=== PATIENT | female | born 1935 | race Caucasian/White ===

== ENCOUNTER → 2016-11-23 | Outpatient (CLI) | payer MEDICARE | END | disposition home or self-care (01) | LOC: LABWHC1 10:44 | PROVIDERS: ATTEND Orthopaedic Surgery Hand Surgery | DX: Z01.812 Encounter for preprocedural laboratory examination (principal) | CPT/HCPCS: 36415; 93005 ==

== ENCOUNTER → 2017-01-24 | Outpatient (CLI) | payer MEDICARE ==
--- NOTE | 2017-01-24 15:22 | XR ---
EXAM TYPE: LUMBAR SPINE X RAY SERIES COMPARISON: NONE HISTORY: Back pain TECHNIQUE: 4 views are submitted. FINDINGS: Alignment is anatomic. The pedicles are intact. The transverse processes are intact. There is post surgical change involving the abdomen with severe multilevel degenerative disc disease and facet arth ropathy. 2 mm retrolisthesis of L2 relative to L3. Foraminal encroachment suspected at multiple level s. IMPRESSION: 1. Severe multilevel degenerative disc disease.
== END | disposition home or self-care (01) ==
LOC: RADXRMAIN 14:52
PROVIDERS: ATTEND Family Medicine
DX: M51.36 Other intervertebral disc degeneration, lumbar region (principal)
CPT/HCPCS: 72100

== ENCOUNTER → 2017-01-24 | Outpatient (CLI) | payer MEDICARE ==
[2017-01-24 14:16] VITALS: BP 110/67; PULSE 78; RESP 20; TEMP 97.7; BMI 43.0
--- NOTE | 2017-01-24 14:38 | P.BASOAP ---
Subjective Principal diagnosis: Morbid obesity Patient is known to our service. The patient underwent lap scopic banding numerous years ago. She believes she has 5 mL in her band at this time. She is interested a band removal because of complaints of dysphagia. She has not had any recent weight loss. She is not interested in trying to loosen the band. She is also currently not interested in conversion to a different surgical procedure. Objective - Vital Signs Vital signs: Vital Signs Temp 97.7 F 01/24/17 14:09 Pulse 78 01/24/17 14:09 Resp 20 01/24/17 14:09 BP 110/67 01/24/17 14:09 Pulse Ox Intake & Output 01/23/17 01/24/17 01/24/17 18:59 06:59 18:59 Weight 110.042 kg - Exam Abdomen: Soft, nondistended nontender Assessment/Plan (1) Morbid obesity Narrative/Plan: We'll remove the fluid from the patient's band. Will tentatively schedule for band removal. The patient's lap band port was palpated. The site was aseptically prepped. 1% lidocaine was infiltrated into the subcutaneous tissues through a diabetic syringe. The Escoto needle was advanced into the port. Aspiration took place. A total of 3 ml of fluid was removed. Pressure was held and a sterile dressing was applied. Plan: Date: 01/24/17 Initial Weight: 110.042 kg Initial BMI: 43.0 Current Weight: 110.042 kg Current BMI: 43.0 Type of Surgery: Total Volume in Band: Previous Volume: Volume Removed: Volume Added: Band Size:
== END | disposition home or self-care (01) ==
LOC: BARWHC3 13:34
PROVIDERS: ATTEND Surgery
DX: E66.01 Morbid (severe) obesity due to excess calories (principal)
CPT/HCPCS: 72100; 99201

== ENCOUNTER → 2017-03-27 | Outpatient (CLI) | payer MEDICARE ==
[2017-03-27 09:22] LABS: ALT 27 U/L (9-52); AST 32 U/L (14-36); Alkaline Phosphatase 107 U/L (38-126); Anion Gap 10 mmol/L; Blood Urea Nitrogen 29 mg/dL (7-17); Calcium 9.5 mg/dL (8.4-10.2); Carbon Dioxide 24 mmol/L (22-30); Chloride 106 mmol/L (98-107); Glucose 171 mg/dL (74-99); Non-African American GFR(MDRD) >60 (>60 ml/min/1.73 sqM); Potassium 5.1 mmol/L (3.5-5.1); Sodium 140 mmol/L (137-145); Total Bilirubin 0.8 mg/dL (0.2-1.3); Total Protein 7.1 g/dL (6.3-8.2)
[2017-03-27 09:45] LABS: Basophils # (A) 0.1 k/uL (0-0.2); Basophils % (A) 1 %; CHCM 31.2; Eosinophils # (A) 0.2 k/uL (0-0.7); Eosinophils % (A) 3 %; HCT 44.2 % (34.0-46.0); HDW 2.48; HGB 13.8 gm/dL (11.4-16.0); Hypochromasia Slight; Luc # (Auto) 0.19; Luc % (Auto) 3; Lymphocytes # (A) 2.1 k/uL (1.0-4.8); Lymphocytes % (A) 30 %; MCHC 31.1 g/dL (31.0-37.0); MCV 96.5 fL (80.0-100.0); Mean Platelet Volume 7.7; Monocytes # (A) 0.4 k/uL (0-1.0); Monocytes % (A) 6 %; Neutrophils % (A) 57 %; RBC 4.58 m/uL (3.80-5.40); RDW 15.4 % (11.5-15.5); WBC 7.1 k/uL (3.8-10.6)
== END | disposition home or self-care (01) ==
LOC: LABPAT 07:53
PROVIDERS: ATTEND Surgery
DX: Z01.810 Encounter for preprocedural cardiovascular examination (principal); R13.10 Dysphagia, unspecified; Z01.812 Encounter for preprocedural laboratory examination
CPT/HCPCS: 80053; 85025

== ENCOUNTER 2017-03-31 05:54 | Inpatient (IN) | payer MEDICARE ==
[2017-03-24 14:37] VITALS: BMI 40.3
[~2017-03-31 05:54] MED LIST: CLINDAMYCIN 900 MG in DEXTROSE 5% IN WATER 50 ML IVPB ONE; HEPARIN SODIUM,PORCINE 5,000 UNIT/ML 1 ML VIAL SQ ONE
[2017-03-31] MEDS ORDERED: DEXAMETHASONE SOD PHOSPHATE 10 MG/ML 1 ML VIAL IV ONE (06:01)
[2017-03-31] MEDS ORDERED: LACTATED RINGERS 1,000 ML IV SCH (06:01)
[2017-03-31] MEDS ORDERED: SCOPOLAMINE 1.5MG/72HR PATCH TRANSDERM ONE (06:01)
[2017-03-31] MEDS ORDERED: ONDANSETRON 4 MG/2 ML VIAL IVP ONE (06:01)
[2017-03-31] MEDS ORDERED: MIDAZOLAM 2 MG/2 ML VIAL IV PRN (06:01)
[2017-03-31] MEDS ORDERED: LIDOCAINE 1% 20 ML VIAL (10MG/ML) FOR IV START INTRADERMA ONE (06:30)
[2017-03-31 06:44] LABS: Glucose,Whole Blood 187 mg/dL (75-99)
--- NOTE | 2017-03-31 07:53 | P.GSHP ---
History of Present Illness H&P Date: 03/31/17 Chief Complaint: Frequent vomiting, band intolerance Patient today for lap band removal. She has had complaints of frequent reflux and vomiting. Her band was emptied and despite that she is still having episodes of dysphagia. No significant pain. Denies rectal bleeding or melena. Past Medical History Past Medical History: Asthma, Diabetes Mellitus, Deep Vein Thrombosis (DVT), GERD/Reflux, Hyperlipidemia Additional Past Medical History / Comment(s): left eye stroke, mitral valve prolapse, viral induced asthma, type 2 diabetes but gets low blood sugar History of Any Multi-Drug Resistant Organisms: None Reported Past Surgical History: Cholecystectomy, Hysterectomy, Joint Replacement, Tonsillectomy Additional Past Surgical History / Comment(s): bilat knees, lap band Past Anesthesia/Blood Transfusion Reactions: No Reported Reaction Past Psychological History: Anxiety, Depression Smoking Status: Never smoker Past Alcohol Use History: Rare Past Drug Use History: None Reported - Past Family History Brother(s) Family Medical History: Cancer Additional Family Medical History / Comment(s): lung Medications and Allergies Home Medications Medication Instructions Recorded Confirmed Type ALPRAZolam [Xanax] 0.25 tab PO HS 01/27/17 03/28/17 History Cholecalciferol (Vitamin D3) 2,000 unit PO DAILY 01/27/17 03/28/17 History [Vitamin D3] Levothyroxine Sodium [Synthroid] 100 mcg PO DAILY 01/27/17 03/28/17 History Multivit-Min/FA/Lycopen/Lutein 1 tab PO DAILY 01/27/17 03/28/17 History [Centrum Silver Tablet] Tolterodine Tartrate [Detrol LA] 4 mg PO DAILY 01/27/17 03/28/17 History Venlafaxine HCl [Effexor XR] 150 mg PO DAILY 01/27/17 03/28/17 History Aspirin 325 mg PO HS 03/28/17 03/28/17 History Naproxen Sodium [Aleve] 220 mg PO HS 03/28/17 03/28/17 History Rosuvastatin [Crestor] 20 mg PO DAILY 03/28/17 03/28/17 History Allergies Allergy/AdvReac Type Severity Reaction Status Date / Time ciprofloxacin [From Cipro] Allergy made eyes Verified 03/24/17 14:17 red from the gtts Penicillins Allergy Unknown Verified 03/24/17 14:17 Surgical - Exam Vital Signs Temp Pulse Resp BP Pulse Ox 97.7 F 85 18 132/70 94 L 03/31/17 06:20 03/31/17 06:20 03/31/17 06:20 03/31/17 06:20 03/31/17 06:20 Physical exam: General: Well-developed, well-nourished HEENT: Normocephalic, sclerae nonicteric Abdomen: Nontender, nondistended Extremities: No edema Neuro: Alert and oriented Results - Labs 03/31/17 06:33 Abnormal Lab Results - Last 24 Hours (Table) 03/31/17 Range/Units 06:28 POC Glucose (mg/dL) 187 H (75-99) mg/dL Diabetes panel 03/31/17 Range/Units 06:33 Potassium 4.3 (3.5-5.1) mmol/L Pituitary panel 03/31/17 Range/Units 06:33 Potassium 4.3 (3.5-5.1) mmol/L Adrenal panel 03/31/17 Range/Units 06:33 Potassium 4.3 (3.5-5.1) mmol/L Assessment and Plan (1) GERD (gastroesophageal reflux disease) Narrative/Plan: Will proceed with laparoscopic band removal at this time. Risks of bleeding, infection, conversion to an open procedure, possible findings of perforation, persistent reflux or vomiting postoperatively were discussed. She understands and wishes to proceed. Status: Acute
[2017-03-31] MEDS ORDERED: PROPOFOL 10 MG/ML 20 ML VIAL IV ONE (08:16)
[2017-03-31] MEDS ORDERED: MIDAZOLAM 2 MG/2 ML VIAL ONE (08:16)
[2017-03-31] MEDS ORDERED: ePHEDrine SULFATE/0.9% NACL/PF 50 MG/5 ML SYRINGE IV ONE (08:16)
[2017-03-31] MEDS ORDERED: PHENYLEPHRINE-0.9% NACL SYG 1 MG/10 ML SYRINGE ONE (08:16)
[2017-03-31] MEDS ORDERED: SUCCINYLCHOLINE CHLORIDE 100 MG/5 ML SYR IV ONE (08:16)
[2017-03-31] MEDS ORDERED: fentaNYL (PF) 50 MCG/ML 2 ML AMP ONE (08:16)
[2017-03-31] MEDS ORDERED: BUPIVACAINE (PF) 0.25% 30 ML VIAL SQ ONE ×2 (08:46)
[2017-03-31] MEDS ORDERED: LACTATED RINGERS 1,000 ML IV ONE (09:18)
[2017-03-31] MEDS ORDERED: NALOXONE 0.4 MG/ML 1 ML VIAL IV PRN (09:32)
[2017-03-31] MEDS ORDERED: traMADol 50 MG TAB PO PRN (09:32)
[2017-03-31] MEDS: HYDROmorphone 1 MG/ML 1 ML SYRINGE IVP PRN ×2 (10:00→10:18)
[2017-03-31 10:05] VITALS: RESP 16; TEMP 97
--- NOTE | 2017-03-31 10:06 | P.OP ---
Date of Procedure: 03/31/17 Preoperative Diagnosis: Postoperative Diagnosis: Procedure(s) Performed: PREOPERATIVE DIAGNOSIS: Band intolerance/abdominal pain/gerd POSTOPERATIVE DIAGNOSIS: Same PROCEDURE: Laparoscopic lap band removal SURGEON: Gisele EBL: Minimal ANESTHESIA: General COMPLICATIONS: None OPERATIVE PROCEDURE: The patient was brought and placed on the operating room table in the supine position. The patient was placed under general anesthesia at that time. The patient was then placed in lithotomy. The abdomen was prepped and draped in the usual sterile fashion. The previous port incision was localized and then incised using a scalpel. The port was excised using electrocautery. Entrance into the peritoneal cavity occurred using a 5 mm optical trocar through the old trocar entrance site. Insufflation took place to 15 mmHg. A right subxiphoid 5 mm trocar was placed. This was then removed and the medium Marcelo hook was used to elevate the left lobe of the liver anteriorly. An additional 5 mm trocar was placed under direct visualization in the left lateral upper quadrant. The original 5 mm trocar was switched to a 15 mm trocar. A additional 5 mm trocar was placed in the right upper quadrant under direct dilatation. There were adhesions to the band in the buccal that were lysed using both the LigaSure and electrocautery. The band was then cut using the laparoscopic martín. The band was then removed easily in 2 portions through the 15 mm trocar site. The stomach itself was inspected and revealed no evidence of erosion or prolapse. The trochars were removed. The fascia at the 15 mm site was closed using a [id number]-sv-mehtw 0 Vicryl stitch. The subcutaneous tissues at the port site was closed using a 3-0 Vicryl suture. The skin at all 4 incision sites were closed using 4-0 Monocryl sutures. Steri- Strips and sterile dressings were then applied. DISPOSITION: Stable to recovery room Implants: Disposition: observation Indications for Procedure: Operative Findings: Description of Procedure:
[2017-03-31 10:31] LABS: Glucose,Whole Blood 209 mg/dL (75-99)
[2017-03-31 11:22] VITALS: PULSE 82
[2017-03-31 11:54] VITALS: BP 110/68
== END 2017-03-31 12:24 | disposition home or self-care (01) | DRG 989 ==
LOC: 2ORWHC 05:54
PROVIDERS: ADMIT Surgery; ATTEND Surgery
PROC: 0DP64CZ Removal of Extraluminal Device from Stomach, Percutaneous Endoscopic Approach (ICD-10-PCS; principal; 2017-03-31 07:45)
DX: K21.9 Gastro-esophageal reflux disease without esophagitis (principal); E11.9 Type 2 diabetes mellitus without complications; I34.1 Nonrheumatic mitral (valve) prolapse; F32.9 Major depressive disorder, single episode, unspecified; R13.10 Dysphagia, unspecified; E78.5 Hyperlipidemia, unspecified; F41.9 Anxiety disorder, unspecified; Z79.82 Long term (current) use of aspirin; Z79.899 Other long term (current) drug therapy; Z86.73 Personal history of transient ischemic attack (TIA), and cerebral infarction without residual deficits; Z88.1 Allergy status to other antibiotic agents; Z88.0 Allergy status to penicillin
CPT/HCPCS: 84132

== ENCOUNTER → 2017-04-25 | Outpatient (CLI) | payer MEDICARE ==
[2017-04-25 14:16] VITALS: BP 129/86; PULSE 74; TEMP 97.2
== END ==
LOC: BARWHC3 13:10
PROVIDERS: ATTEND Surgery
DX: R13.10 Dysphagia, unspecified (principal); Z98.84 Bariatric surgery status
CPT/HCPCS: 99211

== ENCOUNTER → 2017-05-27 | Outpatient (CLI) | payer MEDICARE ==
--- NOTE | 2017-05-28 15:34 | MR ---
EXAMINATION TYPE: MR lumbar spine wo con DATE OF EXAM: 05/27/2017 COMPARISON: NONE HISTORY: 82-year-old female with pain and Sciatica TECHNIQUE: Multiplanar, multisequence images of the lumbar spine were acquired. FINDINGS: Vertebral body heights are preserved. There is moderate to advanced degenerative disc disease and endplate change particularly in the mid t o lower lumbar spine. Intervertebral discs are desiccated and narrowed with disc osteophyte complex f ormation and bulging disks. Fatty Modic type II endplate changes present from L2 through L5 levels. No suspicious bone marrow rep lacement. Ligamentum flavum thickening at the lower lumbar spine with hypertrophic facet arthropathy. 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 Degenerative grade 1 anterolisthesis at L2-L3. Conus medullaris is normal. At T12-L1, no spinal canal or foraminal stenosis. At L1-L2, there is mild disc bulge and prominent dorsal epidural fat with ligamentum flavum thickenin g. There is mild attenuation of the thecal sac without significant spinal canal stenosis. No signific ant neuroforaminal stenosis. At L2-L3, there is hypertrophic facet arthropathy with ligamentum flavum thickening and grade 1 retro listhesis. There is attenuation of the thecal sac without significant spinal canal stenosis. There is mild right and moderate left neuroforaminal stenosis. At L2-L4, there is hypertrophic facet arthropathy and bulging disc. There is mild attenuation of the thecal sac without significant spinal canal stenosis. There is mild right and ccae-cd-zcgoablt left n euroforaminal stenosis. At L4-L5, bulging disc and facet arthropathy. Ligamentum flavum thickening is also present. Changes r esult in mild left and moderate right neuroforaminal stenosis and no significant spinal canal stenosi s. At L5-S1, hypertrophic facet arthropathy with a ligamentum flavum thickening and bulging disc. Change s result in lacv-to-puzuonzu right neuroforaminal stenosis without significant spinal canal stenosis. Partially visualized 1.8 cm T2 hyperintense lesion, likely cyst in the upper pole left kidney. No pre vertebral or paravertebral soft tissue abnormality. IMPRESSION: 1. Moderate to advanced disc/endplate degenerative change mid to lower lumbar spine along with facet arthropathy and ligamentum flavum thickening. 2. Degenerative grade one retrolisthesis at L2-L3. Changes result in mild attenuation of the thecal s ac from L2 through S1 levels but without significant spinal canal stenosis. 3. Bilateral rsez-qv-xvlfyxrn neuroforaminal stenoses as outlined above.
== END | disposition home or self-care (01) ==
LOC: RADMRIMAIN 11:48
PROVIDERS: ATTEND Family Medicine
DX: M47.816 Spondylosis without myelopathy or radiculopathy, lumbar region (principal); M99.73 Connective tissue and disc stenosis of intervertebral foramina of lumbar region; M43.16 Spondylolisthesis, lumbar region; M24.28 Disorder of ligament, vertebrae; M46.96 Unspecified inflammatory spondylopathy, lumbar region
CPT/HCPCS: 72148

== ENCOUNTER → 2017-08-02 | Outpatient (CLI) | payer MEDICARE ==
--- NOTE | 2017-08-02 11:51 | FL ---
EXAMINATION TYPE: FL UGI w esophagus DATE OF EXAM: 08/02/2017 COMPARISON: NONE HISTORY: Abdominal pain for couple of weeks per patient. Epigastric pain per order. History of lap ba nd placed 2011 with removal approximately 6 months ago per patient. History of duodenal ulcer per pat ient. TECHNIQUE: A double contrast UGI study is performed. A total of 40 seconds of fluoroscopic time was utilized during procedure. 27 spot images are saved during procedure. FINDINGS: Recreation Technician image of the abdomen shows cholecystectomy clips. There is multilevel spurring and d isc space narrowing at mid to lower lumbar spine. There is overall nonobstructive bowel gas pattern. Residual clips epigastric region just below diaphragm from prior lap band are noted. The esophagus shows satisfactory motility and emptying into the stomach. No evidence of hiatal herni a or stricture noted. The stomach shows normal distensibility, peristalsis, and mucosal folds. No evidence of any mass or ulcer disease. Several episodes of gastric esophageal reflux were identified during real-time perform ance of study. The duodenal bulb, sweep, and proximal small bowel loops are unremarkable. IMPRESSION: Several episodes of gastroesophageal reflux otherwise unremarkable study.
== END | disposition home or self-care (01) ==
LOC: RADFLWHC 09:52
PROVIDERS: ATTEND Family Medicine
DX: K21.9 Gastro-esophageal reflux disease without esophagitis (principal)
CPT/HCPCS: 74240

== ENCOUNTER → 2017-08-04 | Outpatient (CLI) | payer MEDICARE ==
--- NOTE | 2017-08-06 13:11 | US ---
EXAMINATION TYPE: US venous doppler duplex LE LT DATE OF EXAM: 08/05/2017 6:39 PM COMPARISON: NONE CLINICAL HISTORY: I83.892 lower leg pain/varicosities. Left knee surgery 15 years ago. SIDE PERFORMED: Left TECHNIQUE: The lower extremity deep venous system is examined utilizing real time linear array sonog linden with graded compression, doppler sonography and color-flow sonography. VESSELS IMAGED: External Iliac Vein (EIV) Common Femoral Vein Deep Femoral Vein Greater Saphenous Vein * Femoral Vein Popliteal Vein Small Saphenous Vein * Proximal Calf Veins (* superficial vessels) Left Leg: Negative for DVT Grayscale, color doppler, spectral doppler imaging performed of the deep veins of the left lower extr emity . There is normal flow, compressibility, vascular waveforms. IMPRESSION: No ultrasound evidence for acute DVT in the left lower extremity.
== END | disposition home or self-care (01) ==
LOC: RADUSWWP 12:00
PROVIDERS: ATTEND Physician Assistant
DX: I83.892 Varicose veins of left lower extremity with other complications (principal); Z88.0 Allergy status to penicillin

== ENCOUNTER → 2017-12-25 | Outpatient (CLI) | payer MEDICARE ==
--- NOTE | 2017-12-25 11:33 | US ---
EXAMINATION TYPE: US kidneys/renal and bladder DATE OF EXAM: 12/25/2017 COMPARISON: MRI dated 05/27/2017 CLINICAL HISTORY: N28.1 Cyst of Kidney. EXAM MEASUREMENTS: Right Kidney: 10.6 x 4.8 x 4.5 cm Left Kidney: 9.5 x 4.6 x 5.1 cm Right Kidney: Lobular contour laterally Left Kidney: 2 cyst noted, largest measuring 1.5 x 1.9 x 1.4cm, smaller measuring1.5 x 1.3 x 1.4cm, s imilar appearance suggesting simple cysts Bladder: wnl Bilateral Jets seen: right jet seen, left not seen There is no evidence for hydronephrosis at this point in time. No nephrolithiasis is seen. Cortical medullary differentiation is maintained. The urinary bladder is anechoic. A focal focus at the upper pole of the left kidney shows imperceptible wall, anechoic appearance, probable increased through tra nsmission, no size change as compared to prior lumbar MRI. IMPRESSION: Probable simple cysts left kidney.
== END | disposition home or self-care (01) ==
LOC: RADUSWWP 10:12
PROVIDERS: ATTEND Family Medicine
DX: N28.1 Cyst of kidney, acquired (principal)
CPT/HCPCS: 76770

== ENCOUNTER → 2018-02-05 | Outpatient (CLI) | payer MEDICARE ==
--- NOTE | 2018-02-05 19:12 | CT ---
EXAMINATION TYPE: CT lumbar spine wo con DATE OF EXAM: 02/05/2018 6:49 PM COMPARISON: NONE HISTORY: Low back pain with radiating pain downt the right leg CT DLP: 1103 mGycm Automated exposure control for dose reduction was used. Unenhanced CT of the lumbar spine was performed. Bone and soft tissue window settings are submitted as well as coronal and sagittal reconstructions. The lumbar vertebra have fairly normal alignment. There is a 5 mm mild retrolisthesis of L2 in relati on to L3. There is moderate narrowing of disc spaces from L2 to S1. There is vacuum disc at L5-S1. Th ere is no compression fracture. There is no lumbar paraspinal mass. Sacroiliac joints are intact. I s ee no focal bone destruction. There is no evidence of any significant spinal stenosis. There is small posterior disc bulge at L4-5. There is developmentally adequate spinal canal. There is multilevel hy pertrophic facet arthropathy in the lumbar spine. IMPRESSION: Spondylotic changes. Mild retrolisthesis at L2-3. No spinal stenosis. No fracture seen.
== END | disposition home or self-care (01) ==
LOC: RADCTMAIN 18:30
PROVIDERS: ATTEND Neurological Surgery
DX: M47.816 Spondylosis without myelopathy or radiculopathy, lumbar region (principal); M43.16 Spondylolisthesis, lumbar region
CPT/HCPCS: 72131

== ENCOUNTER → 2018-03-15 | Outpatient (CLI) | payer MEDICARE ==
--- NOTE | 2018-03-15 14:30 | XR ---
EXAMINATION TYPE: XR chest 2V DATE OF EXAM: 03/15/2018 COMPARISON: NONE TECHNIQUE: PA and lateral views submitted. HISTORY: Preop FINDINGS: The lungs are clear and there is no pneumothorax, pleural effusion, or focal pneumonia. Biapical pl eural thickening. Linear changes involving the lung bases are suggestive of scar or atelectasis. Hype rtrophic change of the spine. Surgical clips in the abdomen noted. No overt failure. IMPRESSION: 1. No acute process.
== END | disposition home or self-care (01) ==
LOC: RADXRMAIN 14:07
PROVIDERS: ATTEND Neurological Surgery
DX: M43.16 Spondylolisthesis, lumbar region (principal)
CPT/HCPCS: 71046

== ENCOUNTER 2018-03-28 10:49 | Day surgery (SDC) | payer MEDICARE ==
[2018-03-23 10:18] VITALS: BMI 37.8
[~2018-03-28 10:49] MED LIST changes: +ALPRAZolam 0.25 MG TAB PO PRN; +ALPRAZolam 0.5 MG TAB PO PRN; +ASPIRIN 325 MG TAB PO STA; +ATORVASTATIN 80 MG TAB PO STA; -CLINDAMYCIN 900 MG in DEXTROSE 5% IN WATER 50 ML IVPB ONE; -HEPARIN SODIUM,PORCINE 5,000 UNIT/ML 1 ML VIAL SQ ONE; +NITROGLYCERIN SL TABS 0.4 MG TAB SUBLINGUAL PRN; +SODIUM CHLORIDE 0.9% 1,000 ML in EMPTY BAG 1 BAG IV ONE
[2018-03-28 11:55] VITALS: RESP 16; TEMP 98.2
[2018-03-28 12:12] LABS: Glucose,Whole Blood 128 mg/dL (75-99)
[2018-03-28] MEDS ORDERED: diphenhydrAMINE 50 MG/ML 1 ML VIAL ONE (13:02)
[2018-03-28] MEDS ORDERED: fentaNYL (PF) 50 MCG/ML 2 ML AMP ONE (13:03)
[2018-03-28] MEDS ORDERED: LIDOCAINE 1% INJ 10MG/ML (20 ML MDV) ONE (13:25)
[2018-03-28] MEDS ORDERED: VERAPAMIL 2.5 MG/ML 2 ML AMP ONE (13:25)
[2018-03-28] MEDS ORDERED: diphenhydrAMINE 50 MG/ML 1 ML VIAL IVP ONE (13:26)
[2018-03-28] MEDS ORDERED: fentaNYL (PF) 50 MCG/ML 2 ML AMP IVP ONE (13:26)
[2018-03-28] MEDS ORDERED: LIDOCAINE 1% INJ 10MG/ML (20 ML MDV) SQ ONE (13:30)
[2018-03-28] MEDS: VERAPAMIL SYRINGE (5 MG/10 ML) INTRAARTER ONE ×2 (13:32→13:43)
[2018-03-28] MEDS ORDERED: HEPARIN SODIUM 1,000 UN/ML (10ML VL) IV ONE (13:37)
[2018-03-28] MEDS ORDERED: IOPAMIDOL-370 125ML BTL INJ ONE (13:49)
[2018-03-28] MEDS ORDERED: RX INFO: IV CONTRAST WAS GIVEN 1 EACH MISC MISCELLANE PRN (14:03)
[2018-03-28] MEDS ORDERED: SODIUM CHLORIDE 0.9% 1,000 ML IV SCH (14:15)
--- NOTE | 2018-03-28 14:19 | CC ---
CARDIAC CATHETERIZATION REPORT Mrs. Macdonald is an 83-year-old female with known history of hypertension, hyperlipidemia, diabetes mellitus, history of aortic valve disease who was scheduled to undergo back surgery, who has been complaining of progressive dyspnea on exertion. Underwent a myocardial perfusion imaging that revealed apical lateral wall ischemia. In view of that, recommendation made regarding cardiac catheterization. The procedures, risks and complications were discussed with the patient who is in full understanding and agreement. PROCEDURE: Patient was brought to the cath lab tech in a fasting semi-sedated state after receiving 1st fentanyl and Benadryl and achieving moderate conscious sedated state. Using Xylocaine anesthesia and Seldinger technique, a 6-Martiniquais sheath was introduced in the right radial artery. Selective right and left angiography performed using 5-Martiniquais 4 bend right and left Xin catheter. Multiple views of the coronary artery including hemiaxial views were obtained. Following that 5-Martiniquais tight pigtail catheter was introduced into the left ventricle and a 30 degree SHEPPARD view of the left ventricle was obtained. Following that, catheter and sheath were removed. Hemostasis was obtained with deployment of a TR band. There were no immediate complications. Patient is returned to her room in stable condition. FINDINGS: FLUOROSCOPY: There was calcification involving the aortic valve. SELECTIVE CORONARY ANGIOGRAPHY: LEFT MAIN: This is a short size vessel trifurcating into left circumflex, left anterior descending artery, ramus intermedius. Left main coronary artery has no evidence of high-grade stenosis. LEFT ANTERIOR DESCENDING ARTERY: This is a large-sized vessel reaching toward the apex with a wraparound the apex segment, tortuous in mid segment, giving rise to a large diagonal branch proximally. The left anterior descending artery and its branches have no evidence of obstructive coronary artery disease. LEFT CIRCUMFLEX: This is a nondominant vessel giving rise to a large obtuse marginal branch. The left circumflex as well as branches have no evidence of obstructive coronary artery disease. RIGHT CORONARY ARTERY: This is a large dominant vessel bifurcating PDA and posterolateral segment and its branches. The right coronary artery as well as branches have no evidence of obstructive coronary artery disease. LEFT VENTRICULOGRAM: Left ventriculogram was performed in 30 degree SHEPPARD view and reveals normal size left ventricular size and systolic function. Ejection fraction is about 60%. There was no significant mitral regurgitation. HEMODYNAMICS: There was a 40 mm gradient across the aortic valve. The left ventricular end-diastolic pressure was 10-12 mmHg. CONCLUSION: 1. Calcified aortic valve with moderate aortic stenosis. 2. Normal coronary arteries. 3. Normal left ventricular size and systolic function. RECOMMENDATIONS: In view of findings and anatomy, I recommend continued medical therapy with aggressive coronary risk factor modifications. We will continue to follow the aortic valve closely and depending on that, further recommendations will be made. Duration of procedure is 25 minutes. LUCRETIA / GAILN: [id number] /
[2018-03-28 19:55] VITALS: BP 113/58; PULSE 64
[2018-03-28] MEDS ORDERED: ALPRAZolam 0.25 MG TAB PO SCH (21:00)
[2018-03-28] MEDS ORDERED: ASPIRIN 325 MG TAB PO SCH (21:00)
[2018-03-29] MEDS ORDERED: PANTOPRAZOLE 40 MG TABLET PO SCH (07:30)
[2018-03-29] MEDS ORDERED: CHOLECALCIFEROL 1,000 UNIT TAB PO SCH (09:00)
[2018-03-29] MEDS ORDERED: VENLAFAXINE HCL ER 150 MG CAP PO SCH (09:00)
[2018-03-29] MEDS ORDERED: LEVOTHYROXINE 125 MCG TAB PO SCH (09:00)
[2018-03-29] MEDS ORDERED: VIT A,C & E-LUTEIN-MINERALS 1 EACH TAB PO SCH (09:00)
[2018-03-29] MEDS ORDERED: OXYBUTYNIN XL 5 MG TAB.ER.24 PO SCH (09:00)
== END 2018-03-28 19:14 | disposition home or self-care (01) ==
LOC: CATHCVL 10:49
PROVIDERS: ATTEND Internal Medicine Interventional Cardiology
DX: I35.0 Nonrheumatic aortic (valve) stenosis (principal); R94.39 Abnormal result of other cardiovascular function study; E78.2 Mixed hyperlipidemia; E11.9 Type 2 diabetes mellitus without complications; F17.210 Nicotine dependence, cigarettes, uncomplicated; Z82.49 Family history of ischemic heart disease and other diseases of the circulatory system; Z79.82 Long term (current) use of aspirin; Z79.890 Hormone replacement therapy; Z79.899 Other long term (current) drug therapy; Z88.1 Allergy status to other antibiotic agents; Z88.0 Allergy status to penicillin
CPT/HCPCS: 93458; C1894; C1769; J1200; J2001; J3010; J1644; Q9967

== ENCOUNTER → 2018-08-08 | Outpatient (CLI) | payer MEDICARE ==
--- NOTE | 2018-08-09 14:46 | MM ---
Reason for exam: screening (asymptomatic). Last mammogram was performed 1 year ago. History: Patient is postmenopausal and history of other cancer. Family history of breast cancer in maternal grandmother. Took estrogen for 15 years beginning at age 50. Physical Findings: A clinical breast exam by your physician is recommended on an annual basis and results should be correlated with mammographic findings. MG 3D Screening Mammo W/Cad Bilateral CC and MLO view(s) were taken. Prior study comparison: July 31, 2017, bilateral MG 3d screening mammo w/cad. July 22, 2016, bilateral MG 3d screening mammo w/cad. The breast tissue is heterogeneously dense. This may lower the sensitivity of mammography. There is no discrete abnormality. No significant changes when compared with prior studies. ASSESSMENT: Benign, BI-RAD 2 RECOMMENDATION: Routine screening mammogram of both breasts in 1 year.
== END | disposition home or self-care (01) ==
LOC: RADMAMWWP 11:08
PROVIDERS: ATTEND Family Medicine
DX: Z12.31 Encounter for screening mammogram for malignant neoplasm of breast (principal)
CPT/HCPCS: 77063; 77067

== ENCOUNTER → 2018-10-17 | Outpatient (CLI) | payer MEDICARE ==
--- NOTE | 2018-10-17 12:49 | XR ---
Lumbar spine HISTORY: Pain, degeneration of lumbar disc 3 views of the lumbar spine Correlation prior exam 01/24/2017 Surgical clips again noted in the right upper quadrant. There is been interval posterior fusion at L2 -3. Mild spinal curvature is noted. Bone mineralization is reduced. Lumbar vertebral bodies show pres erved height. Minimal retrolisthesis grade 1 L2-3. Loss of disc height at the intervertebral levels i s noted. Vacuum phenomenon also present at intervertebral levels. Sclerosis present in the posterior elements of the lower lumbar spine compatible with facet arthropathy. Lap band is no longer seen. IMPRESSION: Osteopenia, degenerative disc disease, facet arthropathy, stable spondylolisthesis and in terval postop changes. Mild spinal curvature.
== END ==
LOC: RADXRMAIN 10:06
PROVIDERS: ATTEND Family Medicine
DX: M51.36 Other intervertebral disc degeneration, lumbar region (principal); M43.16 Spondylolisthesis, lumbar region; M46.86 Other specified inflammatory spondylopathies, lumbar region; M85.88 Other specified disorders of bone density and structure, other site; M43.8X6 Other specified deforming dorsopathies, lumbar region; Z98.890 Other specified postprocedural states
CPT/HCPCS: 72100

== ENCOUNTER → 2018-12-19 | Outpatient (CLI) | payer MEDICARE ==
--- NOTE | 2018-12-19 12:20 | XR ---
EXAMINATION TYPE: XR chest 2V DATE OF EXAM: 12/19/2018 COMPARISON: 03-31 TECHNIQUE: PA and lateral views submitted. HISTORY: Cough and congestion FINDINGS: The lungs are clear and there is no pneumothorax, pleural effusion, or focal pneumonia. Biapical pl eural thickening. Atherosclerotic change of the aorta. Surgical changes in the abdomen and vertebral column. Hypertrophic change of the vertebral column. IMPRESSION: 1. No acute process.
== END | disposition home or self-care (01) ==
LOC: RADXRMAIN 11:42
PROVIDERS: ATTEND Family Medicine
DX: J20.9 Acute bronchitis, unspecified (principal)
CPT/HCPCS: 71046

== ENCOUNTER → 2019-01-15 | Outpatient (CLI) | payer MEDICARE ==
--- NOTE | 2019-01-15 11:26 | US ---
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 GLAND SIZE: Right Lobe: 3.0 x 1.5 x 1.0 cm Overall Parenchyma: heterogenous Left Lobe: 2.3 x 1.0 x 1.0 cm Overall Parenchyma: heterogeneous Isthmus Thickness: 0.4 cm NODULES RIGHT: # of nodules measured on right: 0 LEFT: # of nodules measured on left: 0 ISTHMUS: # of nodules measured in the isthmus: 0 Bilateral neck scanned, no evidence of lymphadenopathy. IMPRESSION: Findings could represent thyroiditis, gland is atrophic and heterogeneous.
--- NOTE | 2019-01-15 11:49 | US ---
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 EXAM MEASUREMENTS: Abdominal Aorta: Proximal: 2.1cm Mid: 1.7cm Distal: 1.6cm Bifurcation: Rt: 1.0cm Lt: 0.9cm Pt of large body habitus. Difficult to visualize bifurcation due to overlying bowel and obesity, only seen in transverse with c olor doppler. Grayscale and color Doppler, spectral Doppler imaging performed. IMPRESSION: No evident abdominal aortic aneurysm.
== END | disposition home or self-care (01) ==
LOC: RADUSWWP 07:33
PROVIDERS: ATTEND Family Medicine
DX: I70.0 Atherosclerosis of aorta (principal); E04.2 Nontoxic multinodular goiter
CPT/HCPCS: 76536; 93979

== ENCOUNTER → 2019-06-04 | Outpatient (CLI) | payer MEDICARE ==
[2019-06-04 15:49] LABS: HCT 40.5 % (34.0-46.0); HGB 12.3 gm/dL (11.4-16.0); MCH 27.8 pg (25.0-35.0); MCHC 30.5 g/dL (31.0-37.0); Mean Platelet Volume 6.6; Platelet Count 255 k/uL (150-450); RBC 4.44 m/uL (3.80-5.40); RDW 14.5 % (11.5-15.5)
[2019-06-04 15:58] LABS: Potassium 4.6 mmol/L (3.5-5.1)
== END | disposition home or self-care (01) ==
LOC: LABPAT 14:54
PROVIDERS: ATTEND Internal Medicine Interventional Cardiology
DX: Z01.812 Encounter for preprocedural laboratory examination (principal); I35.0 Nonrheumatic aortic (valve) stenosis
CPT/HCPCS: 36415; 80051; 82565; 84520; 85027

== ENCOUNTER → 2019-08-09 | Outpatient (CLI) | payer MEDICARE ==
--- NOTE | 2019-08-09 10:57 | BD ---
EXAMINATION TYPE: Axial Bone Density DATE OF EXAM: 08/09/2019 COMPARISON: Prior DEXA bone scan 2016 CLINICAL HISTORY: Height: 64 Weight: 284.0 FRAX RISK QUESTIONS: Alcohol (3 or more units per day): no Family History (Parent hip fracture): no Glucocorticoids (More than 3mos): cortisone from bronchitis (Ex: prednisone, prednisolone, methylprednisolone, dexamethasone, and hydrocortisone). History of Fracture in Adulthood: yes Secondary Osteoporosis: 1. Type 1 Diabetes: no 2. Hyperthyroidism: no 3. Menopause before 45: no 4. Malnutrition: no 5. Chronic liver disease: no Rheumatoid Arthritis: no Current Tobacco Use: no RISK FACTORS HISTORY OF: History of Wrist Fracture: left When: 5 years ago Surgery to Spine/Hip(right/left)/Wrist (right/left): lumbar spine When: 1 year ago Family History of Osteoporosis: no Active: sometimes Diet low in dairy products/other sources of calcium: no Postmenopausal woman: age50 MEDICATIONS: Thyroid Medications: levothyroxine How Lon years Additional History: EXAM MEASUREMENTS: Bone mineral densitometry was performed using the Built In System. Bone mineral density about the R hip (g/cm2): 0.912 Bone mineral density about the L hip (g/cm2): 0.985 T Score values are as follows: -----R Neck: -0.9 -----L Neck: -0.4 -----R Total: -0.6 -----L Total: 0.0 Bone mineral density has: decreased -4.1 % since study of: 2016 Bone mineral density about the R Wrist (g/cm2): 0.519 T Score values are as follows: -----Dist. R+U: 0.0 -----Prox. R+U: -2.7 -----Radius total: -2.6 Bone mineral density baseline for the wrist IMPRESSION: Osteoporosis (T Score less than -2.5) at level of wrist. There is increased fracture risk and therapy is usually indicated based on age. Re-Screen 1-2 years. NOTE: T-SCORE=SD OF THE YOUNG ADULT MEAN.
--- NOTE | 2019-08-09 13:02 | MM ---
Reason for exam: screening (asymptomatic). Last mammogram was performed 1 year ago. History: Patient is postmenopausal and history of other cancer. Family history of breast cancer in maternal grandmother. Took estrogen for 15 years beginning at age 50. Physical Findings: A clinical breast exam by your physician is recommended on an annual basis and results should be correlated with mammographic findings. MG 3D Screening Mammo W/Cad Bilateral CC and MLO view(s) were taken. Prior study comparison: August 08, 2018, bilateral MG 3d screening mammo w/cad. July 31, 2017, bilateral MG 3d screening mammo w/cad. There are scattered fibroglandular densities. There are benign appearing round calcifications bilaterally. There is chronic nodularity in the left breast. There is no discrete abnormality. ASSESSMENT: Benign, BI-RAD 2 RECOMMENDATION: Routine screening mammogram of both breasts in 1 year.
== END | disposition home or self-care (01) ==
LOC: RADMAMWWP 09:05
PROVIDERS: ATTEND Family Medicine
DX: Z12.31 Encounter for screening mammogram for malignant neoplasm of breast (principal); M81.0 Age-related osteoporosis without current pathological fracture; Z78.0 Asymptomatic menopausal state
CPT/HCPCS: 77063; 77067; 77080

== ENCOUNTER → 2020-03-30 | Outpatient (CLI) | payer MEDICARE | END | disposition home or self-care (01) | LOC: LABWHC1 09:44 | PROVIDERS: ATTEND Family Medicine | DX: U07.1 COVID-19 (principal) | CPT/HCPCS: U0003; C9803 ==

== ENCOUNTER → 2020-04-07 | Outpatient (CLI) | payer MEDICARE | END | disposition home or self-care (01) | LOC: LABWHC1 09:40 | PROVIDERS: ATTEND Internal Medicine | DX: Z01.812 Encounter for preprocedural laboratory examination (principal); Z20.828 Contact with and (suspected) exposure to other viral communicable diseases | CPT/HCPCS: U0003; C9803 ==

== ENCOUNTER → 2020-07-02 | Outpatient (CLI) | payer MEDICARE | END | disposition home or self-care (01) | LOC: LABWHC1 12:39 | PROVIDERS: ATTEND Nurse Practitioner | DX: Z20.828 Contact with and (suspected) exposure to other viral communicable diseases (principal) | CPT/HCPCS: U0003; C9803 ==

== ENCOUNTER → 2020-09-07 | Outpatient (CLI) | payer MEDICARE ==
--- NOTE | 2020-09-08 07:52 | US ---
EXAMINATION TYPE: US venous doppler duplex LE BI DATE OF EXAM: 09/07/2020 4:06 PM COMPARISON: NONE CLINICAL HISTORY: R60.0 Localized edema. SIDE PERFORMED: Bilateral TECHNIQUE: The lower extremity deep venous system is examined utilizing real time linear array sonog linden with graded compression, doppler sonography and color-flow sonography. VESSELS IMAGED: Common Femoral Vein Deep Femoral Vein Greater Saphenous Vein * Femoral Vein Popliteal Vein Small Saphenous Vein * Proximal Calf Veins (* superficial vessels) Patient of large body habitus Right Leg: Negative for DVT Left Leg: Negative for DVT IMPRESSION: No evidence for DVT.
== END | disposition home or self-care (01) ==
LOC: RADUSWWP 16:04
PROVIDERS: ATTEND Family Medicine
DX: R60.0 Localized edema (principal)
CPT/HCPCS: 93970

== ENCOUNTER → 2020-10-15 | Outpatient (CLI) | payer MEDICARE ==
--- NOTE | 2020-10-15 11:26 | MM ---
Reason for exam: screening (asymptomatic). Last mammogram was performed 1 year and 2 months ago. History: Patient is postmenopausal and history of other cancer. Family history of breast cancer in maternal grandmother. Took hormonal contraceptives for 6 months. Took estrogen for 15 years beginning at age 50. Physical Findings: A clinical breast exam by your physician is recommended on an annual basis and results should be correlated with mammographic findings. MG 3D Screening Mammo W/Cad Bilateral CC and MLO view(s) were taken. Prior study comparison: August 09, 2019, bilateral MG 3d screening mammo w/cad. August 08, 2018, bilateral MG 3d screening mammo w/cad. There are scattered fibroglandular densities. There are benign appearing round calcifications bilaterally. There is chronic nodularity in the left breast. There is no discrete abnormality. ASSESSMENT: Benign, BI-RAD 2 RECOMMENDATION: Routine screening mammogram of both breasts in 1 year.
== END ==
LOC: RADMAMWWP 09:16
PROVIDERS: ATTEND Family Medicine
DX: Z12.31 Encounter for screening mammogram for malignant neoplasm of breast (principal); Z78.0 Asymptomatic menopausal state; Z80.3 Family history of malignant neoplasm of breast
CPT/HCPCS: 77063; 77067

== ENCOUNTER → 2021-03-09 | Outpatient (CLI) | payer MEDICARE ==
--- NOTE | 2021-03-09 11:01 | CT ---
EXAMINATION TYPE: CT brain jose rodriguez con DATE OF EXAM: 03/09/2021 COMPARISON: None HISTORY: Fall, dizziness CT DLP: 1731.2 mGycm, Automated exposure control for dose reduction was used. CONTRAST: None CT of the brain is performed utilizing 3 mm thick sections through the posterior fossa and 3 mm thick sections through the remaining calvarium. Study is performed within 24 hours of arrival to the hospital. No abnormal hyperdensity is present to suggest an acute intracranial hemorrhage. No mass lesion is evident. No acute infarcts are evident. Ventricles and sulci are prominent for the patient age. Extra-axial spaces are prominent adjacent to the frontal lobes. Consider subdural hygroma. Some superficial soft tissue swelling is over the right frontal temporal region. Mild mucosal thickening in posterior left ethmoid air cells. Remaining paranasal sinuses and mastoid air cells are clear. IMPRESSIONS: 1. Atrophy with chronic appearing periventricular white matter ischemic changes. CT cervical spine. COMPARISON: None CT of the cervical spine is performed in the axial plane at 2 mm thick sections. Reconstructed image s in the coronal, and sagittal plane are reviewed on the computer. No acute fractures are evident. Vertebral body alignment is normal. Prevertebral space is normal. Diffuse loss of disc height is present through the cervical spine. This is greatest at C4-5 C5-6 C6-7 . Some posterior endplate spurring is present C5-6 and C3-4. Anterior vertebral body spurring is pres ent C4, C5, and C6.. Vertebral body heights are preserved. No spinal canal stenosis is evident. Uncovertebral joint hypertrophy is contributing to mild foraminal narrowing bilaterally at C5-6 C6-7. Lung apices appear clear. IMPRESSIONS: 1. Degenerative disc changes. 2. Mild foraminal narrowing bilaterally C5-6 C6-7 from uncovertebral joint hypertrophy.
== END | disposition home or self-care (01) ==
LOC: RADCTMAIN 10:09
PROVIDERS: ATTEND Nurse Practitioner
DX: I67.82 Cerebral ischemia (principal); M50.323 Other cervical disc degeneration at C6-C7 level; M99.71 Connective tissue and disc stenosis of intervertebral foramina of cervical region
CPT/HCPCS: 70450; 72125

== ENCOUNTER → 2021-03-10 | Outpatient (CLI) | payer MEDICARE ==
--- NOTE | 2021-03-10 11:09 | XR ---
EXAMINATION TYPE: XR wrist complete RT DATE OF EXAM: 03/10/2021 COMPARISON: NONE HISTORY: Pain TECHNIQUE: Four views submitted. FINDINGS: The osseous structures are intact. There is a negative ulnar variance with arthropathy of the radioul nico and radiocarpal joint. Chondrocalcinosis noted. Mild diffuse osteopenia. IMPRESSION: 1. Arthropathy.
--- NOTE | 2021-03-10 11:11 | XR ---
EXAMINATION TYPE: XR hand complete RT DATE OF EXAM: 03/10/2021 COMPARISON: NONE HISTORY: Pain TECHNIQUE: Three views are submitted. FINDINGS: The osseous structures are intact. Diffuse osteopenia. Narrowing of the DIP joints of the second thro ugh fifth digits as well as the radiocarpal and radioulnar joints. Diffuse osteopenia. IMPRESSION: 1. No definite acute fracture or dislocation if symptoms persist, follow-up study in 7 to 10 days wo uld be suggested. 2. Arthropathy. 3. Diffuse osteopenia
--- NOTE | 2021-03-10 11:14 | XR ---
EXAMINATION TYPE: XR forearm RT DATE OF EXAM: 03/10/2021 COMPARISON: NONE HISTORY: Pain Two views of the forearm demonstrate Arthropathy of the radiocarpal and radioulnar joint. Evidence of chondrocalcinosis. Hypertrophic change involving the elbow joint. There is displacement of the anter ior fat pad. IMPRESSION: 1. There is displacement anterior fat pad. Occult fracture in the differential diagnosis.
== END | disposition home or self-care (01) ==
LOC: RADXRMAIN 09:33
PROVIDERS: ATTEND Nurse Practitioner
DX: M85.841 Other specified disorders of bone density and structure, right hand (principal); M85.831 Other specified disorders of bone density and structure, right forearm; S52.501A Unspecified fracture of the lower end of right radius, initial encounter for closed fracture

== ENCOUNTER 2021-03-14 09:30 | Emergency (ER) | payer MEDICARE ==
[2021-03-14 09:35] VITALS: RESP 20; TEMP 98.2
--- NOTE | 2021-03-14 09:49 | ED ---
Upper Extremity HPI - General Chief Complaint: Extremity Injury, Upper Stated Complaint: Rt Wrist Injury Time Seen by Provider: 03/14/21 09:36 Source: patient Mode of arrival: wheelchair Limitations: no limitations - History of Present Illness Initial Comments: This an 86-year-old female presents emergency Department with chief complaint of continuation of right wrist and elbow pain. Patient states she had a fall today did see PCP in which a CAT scan of her head and x-rays. Patient states that she still has pain in the wrist and cold. She was informed that there may be a possible fracture to right elbow but had a negative x-ray of the wrist she did contact orthopedics who stated they could see her in 3 weeks. He states that she cannot wait for this pain is worsened. - Related Data Home Medications Medication Instructions Recorded Confirmed ALPRAZolam [Xanax] 0.25 tab PO HS 01/27/17 03/23/18 Cholecalciferol (Vitamin D3) 2,000 unit PO DAILY 01/27/17 03/23/18 [Vitamin D3] Levothyroxine Sodium [Synthroid] 125 mcg PO DAILY 01/27/17 03/23/18 Multivit-Min/FA/Lycopen/Lutein 1 tab PO DAILY 01/27/17 03/23/18 [Centrum Silver Tablet] Tolterodine Tartrate [Detrol LA] 4 mg PO DAILY 01/27/17 03/23/18 Venlafaxine HCl [Effexor XR] 150 mg PO DAILY 01/27/17 03/23/18 Aspirin 162 mg PO HS 03/28/17 03/23/18 Omeprazole [PriLOSEC] 20 mg PO AC-BRKFST 03/23/18 03/23/18 Allergies Allergy/AdvReac Type Severity Reaction Status Date / Time ciprofloxacin [From Cipro] Allergy made eyes Verified 03/14/21 09:35 red from the gtts Penicillins Allergy Unknown Verified 03/14/21 09:35 Review of Systems ROS Statement: Those systems with pertinent positive or pertinent negative responses have been documented in the HPI. ROS Other: All systems not noted in ROS Statement are negative. Past Medical History Past Medical History: Asthma, Diabetes Mellitus, Deep Vein Thrombosis (DVT), GERD/Reflux, Hyperlipidemia, Mitral Valve Prolapse (MVP), Thyroid Disorder Additional Past Medical History / Comment(s): left eye stroke, viral induced asthma, type 2 diabetes but gets low blood sugar, severe DDD lower back History of Any Multi-Drug Resistant Organisms: None Reported Past Surgical History: Bariatric Surgery, Cholecystectomy, Hysterectomy, Joint Replacement, Tonsillectomy Additional Past Surgical History / Comment(s): bilat knees, lap band, lap band removal 8-17 Past Anesthesia/Blood Transfusion Reactions: No Reported Reaction Past Psychological History: Anxiety, Depression Smoking Status: Former smoker Past Alcohol Use History: Rare Past Drug Use History: None Reported - Past Family History Brother(s) Family Medical History: Cancer Additional Family Medical History / Comment(s): lung General Exam Limitations: no limitations General appearance: alert, in no apparent distress Head exam: Present: atraumatic, normocephalic, normal inspection, other (Facial bruising noted) Respiratory exam: Present: normal lung sounds bilaterally. Absent: respiratory distress, wheezes, rales, rhonchi, stridor Cardiovascular Exam: Present: regular rate, normal rhythm, normal heart sounds. Absent: systolic murmur, diastolic murmur, rubs, gallop, clicks Extremities exam: Present: other (Right wrist there is tenderness, mild swelling noted, no obvious deformity no hand tenderness neurovascular intact there is tenderness over the right elbow with pain with range of motion) Skin exam: Present: warm, dry, intact, normal color. Absent: rash Course Vital Signs 03/14/21 09:31 Temperature 98.2 F Pulse Rate 90 Respiratory 20 Rate Blood Pressure 104/46 O2 Sat by Pulse 96 Oximetry Procedures - Orthopedic Splinting/Casting Injury #2 Side: right Upper Extremity Injury Location: long arm, elbow, wrist Upper Extremity Immobilizer: sling/shoulder immobilizer, posterior splint, synthetic pre-padded splint Medical Decision Making - Medical Decision Making X-rays were reviewed shows evidence of occult fracture right elbow, x-ray of the wrist shows osteopenia changes no definite fracture. Patient was splinted in a long-arm splint will follow-up with orthopedics on Monday return for any worsening change in symptoms. Disposition Clinical Impression: Right radial head fracture, Right wrist sprain Disposition: HOME SELF-CARE Condition: Stable Instructions (If sedation given, give patient instructions): Arm Fracture in Adults (ED) Additional Instructions: Please return to the Emergency Department if symptoms worsen or any other concerns. Is patient prescribed a controlled substance at d/c from ED?: No Referrals: Vladimir Miller MD [Primary Care Provider] - 1-2 days Guevara Tineo DO [Doctor of Osteopathic Medicine] - 1-2 days Time of Disposition: 10:15
--- NOTE | 2021-03-14 10:06 | XR ---
EXAMINATION TYPE: XR elbow complete RT DATE OF EXAM: 03/14/2021 COMPARISON: NONE HISTORY: Pain FINDINGS: Three views of the elbow demonstrate posterior and anterior fat pad compatible with pathologic joint effusion. Arthropathy of the joint spaces. No erosive changes. Soft tissue calcifications noted.. Th e osseous structures are intact. There is no acute fracture or dislocation. IMPRESSION: 1. Pathologic joint effusion suspected occult fracture. 2. Arthropathy.
--- NOTE | 2021-03-14 10:07 | XR ---
EXAMINATION TYPE: XR wrist complete RT DATE OF EXAM: 03/14/2021 COMPARISON: NONE HISTORY: Pain TECHNIQUE: Four views submitted. FINDINGS: The osseous structures are intact. Diffuse osteopenia and there is no acute fracture or dislocation. Chondrocalcinosis noted. IMPRESSION: 1. No definite acute fracture or dislocation if symptoms persist, follow-up study in 7 to 10 days wo uld be suggested
[2021-03-14 10:40] VITALS: BP 107/88; PULSE 84
== END 2021-03-14 10:40 | disposition home or self-care (01) ==
LOC: EC 09:30
DX: S52.121A Displaced fracture of head of right radius, initial encounter for closed fracture (principal); S63.501A Unspecified sprain of right wrist, initial encounter; E11.9 Type 2 diabetes mellitus without complications; E78.5 Hyperlipidemia, unspecified; J45.909 Unspecified asthma, uncomplicated; K21.9 Gastro-esophageal reflux disease without esophagitis; F32.9 Major depressive disorder, single episode, unspecified; F41.9 Anxiety disorder, unspecified; Z79.890 Hormone replacement therapy; Z79.82 Long term (current) use of aspirin; Z79.899 Other long term (current) drug therapy; Z88.0 Allergy status to penicillin; Z88.1 Allergy status to other antibiotic agents; W19.XXXA Unspecified fall, initial encounter
CPT/HCPCS: 29105; 99284

== ENCOUNTER 2021-03-23 10:37 | Observation (INO) | payer MEDICARE ==
[2021-03-23] MEDS ORDERED: SODIUM CHLORIDE 0.9% 500 ML 500 ML IV STA (10:52)
--- NOTE | 2021-03-23 10:56 | ED ---
General Adult HPI - General Chief complaint: Dizziness Stated complaint: possible stroke-sent by PCP Time Seen by Provider: 03/23/21 10:46 Source: patient, RN notes reviewed, old records reviewed Mode of arrival: wheelchair Limitations: no limitations - History of Present Illness Initial comments: 86-year-old female presented from the primary care physician to rule out acute stroke. Patient was noted to have a right-sided facial droop at the primary care office just prior to arrival. This was noticed at approximately 10:15 AM. The patient and her are uncertain exactly when this started but believes that it did start this morning. She has had dizziness and recent fall which occurred about one week ago. She did have head trauma at that time and has ecchymosis on the right side of her face and periorbital region. She has been dizzy since that time although yesterday afternoon she developed more severe dizziness and unsteady gait. No chest pain or abdominal pain. No palpitations. - Related Data Home Medications Medication Instructions Recorded Confirmed Cholecalciferol (Vitamin D3) 2,000 unit PO BID 01/27/17 03/23/21 [Vitamin D3] Levothyroxine Sodium [Synthroid] 125 mcg PO DAILY 01/27/17 03/23/21 Multivit-Min/FA/Lycopen/Lutein 1 tab PO HS 01/27/17 03/23/21 [Centrum Silver Tablet] Tolterodine Tartrate [Detrol LA] 4 mg PO HS 01/27/17 03/23/21 Venlafaxine HCl [Effexor XR] 150 mg PO HS 01/27/17 03/23/21 Omeprazole [PriLOSEC] 20 mg PO AC-BRKFST 03/23/18 03/23/21 ALPRAZolam [Xanax] 0.5 mg PO HS 03/23/21 03/23/21 Ascorbic Acid [Vitamin C] 500 mg PO HS 03/23/21 03/23/21 Aspirin EC [Ecotrin Low Dose] 81 mg PO HS 03/23/21 03/23/21 Glimepiride [Amaryl] 2 mg PO AC-BRKFST 03/23/21 03/23/21 Meclizine [Antivert] 12.5 mg PO TID PRN 03/23/21 03/23/21 traMADol HCL 50 mg PO TID PRN 03/23/21 03/23/21 Allergies Allergy/AdvReac Type Severity Reaction Status Date / Time ciprofloxacin [From Cipro] Allergy made eyes Verified 03/23/21 12:54 red from the gtts Penicillins Allergy Unknown Verified 03/23/21 12:54 Review of Systems ROS Statement: Those systems with pertinent positive or pertinent negative responses have been documented in the HPI. ROS Other: All systems not noted in ROS Statement are negative. Past Medical History Past Medical History: Asthma, Diabetes Mellitus, Deep Vein Thrombosis (DVT), GERD/Reflux, Hyperlipidemia, Mitral Valve Prolapse (MVP), Thyroid Disorder Additional Past Medical History / Comment(s): left eye stroke, viral induced asthma, type 2 diabetes but gets low blood sugar, severe DDD lower back History of Any Multi-Drug Resistant Organisms: None Reported Past Surgical History: Bariatric Surgery, Cholecystectomy, Hysterectomy, Joint Replacement, Tonsillectomy Additional Past Surgical History / Comment(s): bilat knees, lap band, lap band removal 8-17 Past Anesthesia/Blood Transfusion Reactions: No Reported Reaction Past Psychological History: Anxiety, Depression Smoking Status: Former smoker Past Alcohol Use History: Rare Past Drug Use History: None Reported - Past Family History Brother(s) Family Medical History: Cancer Additional Family Medical History / Comment(s): lung General Exam Limitations: no limitations General appearance: alert, in no apparent distress Head exam: Present: other (Right periorbital ecchymosis) Eye exam: Present: normal appearance, PERRL, other (Patient is unable to fully close the right eye. She has an erythematous slightly swollen right ear) Neck exam: Present: normal inspection. Absent: tenderness Respiratory exam: Present: normal lung sounds bilaterally. Absent: respiratory distress, wheezes Cardiovascular Exam: Present: regular rate, normal rhythm GI/Abdominal exam: Present: soft. Absent: distended, tenderness, guarding Extremities exam: Present: normal inspection, normal capillary refill. Absent: pedal edema, calf tenderness Neurological exam: Present: alert, oriented X3, motor sensory deficit (Right facial droop, normal sensation, no limb weakness or ataxia, NIH of 1.). Absent: CN II-XII intact Psychiatric exam: Present: normal affect, normal mood Skin exam: Present: warm, dry. Absent: cyanosis, diaphoretic Course Vital Signs 03/23/21 03/23/21 03/23/21 10:38 10:44 11:07 Temperature 98.1 F Pulse Rate 87 68 65 Respiratory 18 18 18 Rate Blood Pressure 164/85 144/82 O2 Sat by Pulse 98 95 98 Oximetry 03/23/21 03/23/21 03/23/21 11:22 11:37 11:44 Temperature Pulse Rate 67 68 67 Respiratory 18 18 18 Rate Blood Pressure 144/82 145/80 133/74 O2 Sat by Pulse 98 98 98 Oximetry 03/23/21 03/23/21 03/23/21 11:52 12:00 13:00 Temperature Pulse Rate 66 67 66 Respiratory 18 18 18 Rate Blood Pressure 141/73 133/74 O2 Sat by Pulse 98 98 98 Oximetry EKG Findings - EKG Comments: EKG Findings:: EKG: Sinus rhythm with occasional PVC, left axis, rate of 87, SC interval 166, QRS duration 82, QTC 428, no ST segment elevation. Medical Decision Making - Medical Decision Making 86-year-old female with right-sided facial droop. She is evaluated as a code stroke activation. I did discuss the case with the neural interventionalists out of [facility]. Given the low NIH and concern for a possible developing Hylton's palsy patient is not a TPA candidate. She has no limb weakness or ataxia. Head CT is performed which is negative for intracranial hemorrhage or mass effect. CT angiography has been reviewed by radiology interpretation is not available at the time of this dictation. Patient is treated with a full strength aspirin and prednisone as well as doxycycline for a cellulitis of the right ear. This will cover both possible CVA and Hylton's palsy. She will be admitted for stroke rule out. Case discussed with Dr. cotto does know who will admit. Results of chest x-ray and CT angiography are pending. - Lab Data Result diagrams: 03/23/21 11:24 03/23/21 11:24 Lab Results 03/23/21 03/23/21 03/23/21 Range/Units 10:55 11:24 11:24 WBC 8.7 (3.8-10.6) k/uL RBC 4.69 (3.80-5.40) m/uL Hgb 13.4 (11.4-16.0) gm/dL Hct 42.6 (34.0-46.0) % MCV 90.8 (80.0-100.0) fL MCH 28.6 (25.0-35.0) pg MCHC 31.5 (31.0-37.0) g/dL RDW 13.9 (11.5-15.5) % Plt Count 315 (150-450) k/uL MPV 7.3 Neutrophils % 73 % Lymphocytes % 18 % Monocytes % 6 % Eosinophils % 2 % Basophils % 1 % Neutrophils # 6.4 (1.3-7.7) k/uL Lymphocytes # 1.5 (1.0-4.8) k/uL Monocytes # 0.5 (0-1.0) k/uL Eosinophils # 0.2 (0-0.7) k/uL Basophils # 0.1 (0-0.2) k/uL PT 10.2 (9.0-12.0) sec INR 0.9 (<1.2) APTT 21.2 L (22.0-30.0) sec Sodium (137-145) mmol/L Potassium (3.5-5.1) mmol/L Chloride (98-107) mmol/L Carbon Dioxide (22-30) mmol/L Anion Gap mmol/L BUN (7-17) mg/dL Creatinine (0.52-1.04) mg/dL Est GFR (CKD-EPI)AfAm (>60 ml/min/1.73 sqM) Est GFR (CKD-EPI)NonAf (>60 ml/min/1.73 sqM) Glucose (74-99) mg/dL POC Glucose (mg/dL) 221 H (75-99) mg/dL POC Glu Long Term Acute Care Registered Nurse ID Elie Zarate Calcium (8.4-10.2) mg/dL Total Bilirubin (0.2-1.3) mg/dL AST (14-36) U/L ALT (4-34) U/L Alkaline Phosphatase (38-126) U/L Troponin I (0.000-0.034) ng/mL Total Protein (6.3-8.2) g/dL Albumin (3.5-5.0) g/dL 03/23/21 03/23/21 Range/Units 11:24 11:24 WBC (3.8-10.6) k/uL RBC (3.80-5.40) m/uL Hgb (11.4-16.0) gm/dL Hct (34.0-46.0) % MCV (80.0-100.0) fL MCH (25.0-35.0) pg MCHC (31.0-37.0) g/dL RDW (11.5-15.5) % Plt Count (150-450) k/uL MPV Neutrophils % % Lymphocytes % % Monocytes % % Eosinophils % % Basophils % % Neutrophils # (1.3-7.7) k/uL Lymphocytes # (1.0-4.8) k/uL Monocytes # (0-1.0) k/uL Eosinophils # (0-0.7) k/uL Basophils # (0-0.2) k/uL PT (9.0-12.0) sec INR (<1.2) APTT (22.0-30.0) sec Sodium 135 L (137-145) mmol/L Potassium 5.2 H (3.5-5.1) mmol/L Chloride 100 (98-107) mmol/L Carbon Dioxide 26 (22-30) mmol/L Anion Gap 9 mmol/L BUN 33 H (7-17) mg/dL Creatinine 0.75 (0.52-1.04) mg/dL Est GFR (CKD-EPI)AfAm 85 (>60 ml/min/1.73 sqM) Est GFR (CKD-EPI)NonAf 74 (>60 ml/min/1.73 sqM) Glucose 216 H (74-99) mg/dL POC Glucose (mg/dL) (75-99) mg/dL POC Glu Long Term Acute Care Registered Nurse ID Calcium 9.7 (8.4-10.2) mg/dL Total Bilirubin 0.5 (0.2-1.3) mg/dL AST 24 (14-36) U/L ALT 17 (4-34) U/L Alkaline Phosphatase 139 H (38-126) U/L Troponin I 0.016 (0.000-0.034) ng/mL Total Protein 6.8 (6.3-8.2) g/dL Albumin 4.0 (3.5-5.0) g/dL Disposition Clinical Impression: Facial droop, CVA (cerebral vascular accident) Disposition: ADMITTED IP TO THIS HOSP Condition: Stable Is patient prescribed a controlled substance at d/c from ED?: No Decision to Admit Reason: Admit from EC Decision Date: 03/23/21 Decision Time: 13:07
[2021-03-23 11:06] LABS: Glucose,Whole Blood 221 mg/dL (75-99)
[2021-03-23 11:23] LABS: Basophils # (A) 0.1 k/uL (0-0.2); Basophils % (A) 1 %; Eosinophils # (A) 0.2 k/uL (0-0.7); Eosinophils % (A) 2 %; HCT 42.6 % (34.0-46.0); HGB 13.4 gm/dL (11.4-16.0); Lymphocytes # (A) 1.5 k/uL (1.0-4.8); Lymphocytes % (A) 18 %; MCH 28.6 pg (25.0-35.0); MCHC 31.5 g/dL (31.0-37.0); MCV 90.8 fL (80.0-100.0); Mean Platelet Volume 7.3; Monocytes # (A) 0.5 k/uL (0-1.0); Monocytes % (A) 6 %; Neutrophils # (A) 6.4 k/uL (1.3-7.7); Neutrophils % (A) 73 %; Platelet Count 315 k/uL (150-450); RBC 4.69 m/uL (3.80-5.40); RDW 13.9 % (11.5-15.5); WBC 8.7 k/uL (3.8-10.6)
[2021-03-23 11:39] LABS: Calcium 9.7 mg/dL (8.4-10.2); Potassium 5.2 mmol/L (3.5-5.1); Total Bilirubin 0.5 mg/dL (0.2-1.3); Total Protein 6.8 g/dL (6.3-8.2)
[2021-03-23 11:58] LABS: INR 0.9 (<1.2); Prothrombin Time 10.2 sec (9.0-12.0)
[2021-03-23] MEDS ORDERED: predniSONE 20 MG TAB PO STA (12:14)
[2021-03-23] MEDS ORDERED: DOXYCYCLINE 100 MG CAP PO STA (12:14)
[2021-03-23] MEDS ORDERED: ASPIRIN 325 MG TAB PO STA (12:14)
[2021-03-23 12:22] LABS: Partial Thromboplastin Time 21.2 sec (22.0-30.0)
[2021-03-23] MEDS ORDERED: ALPRAZolam 0.5 MG TAB PO PRN (13:55)
[2021-03-23] MEDS ORDERED: MECLIZINE 12.5 MG TAB PO PRN (13:55)
[2021-03-23] MEDS ORDERED: traMADol 50 MG TAB PO PRN (13:55)
--- NOTE | 2021-03-23 14:21 | P.HPIM ---
History of Present Illness 86-year-old female was sent in from PCPs office because of the facial droop on the right side. Patient had a fall about a week ago started having vertiginous symptoms about a 4:30 days ago. Patient is also having earache and ear pain. Denied any fever chills. Denied nausea vomiting. Patient noticed facial droop today morning because of which patient was seen in PCPs office and was subsequent recent in here. 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 Patient is being admitted at for workup for several vascular accident, brain CT and head and neck angiographic CT readings are still pending. Patient was started on steroids which will be continued at a low dose. Patient does have a perioral numbness in the right side REVIEW OF SYSTEMS: CONSTITUTIONAL: No fever, no malaise, no fatigue. HEENT: No recent visual problems or hearing problems. Denied any sore throat. CARDIOVASCULAR: No chest pain, orthopnea, PND, no palpitations, no syncope. PULMONARY: No shortness of breath, no cough, no hemoptysis. GASTROINTESTINAL: No diarrhea, no nausea, no vomiting, no abdominal pain. NEUROLOGICAL: No headaches,. HEMATOLOGICAL: Denies any bleeding or petechiae. GENITOURINARY: Denies any burning micturition, frequency, or urgency. MUSCULOSKELETAL/RHEUMATOLOGICAL: Denies any joint pain, swelling, or any muscle pain. ENDOCRINE: Denies any polyuria or polydipsia. The rest of the 14-point review of systems is negative. PHYSICAL EXAMINATION: GENERAL: The patient is alert and oriented x3, not in any acute distress. Well developed, well nourished. HEENT: Pupils are round and equally reacting to light. EOMI. No scleral icterus. No conjunctival pallor. Normocephalic, atraumatic. No pharyngeal erythema. No thyromegaly. CARDIOVASCULAR: S1 and S2 present. No murmurs, rubs, or gallops. PULMONARY: Chest is clear to auscultation, no wheezing or crackles. ABDOMEN: Soft, nontender, nondistended, normoactive bowel sounds. No palpable organomegaly. MUSCULOSKELETAL: No joint swelling or deformity. EXTREMITIES: No cyanosis, clubbing, or pedal edema. NEUROLOGICAL: Facial weakness on the right side of the face lower motor neuron palsy SKIN: No rashes. 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 Patient is undergoing workup for several vascular accident possibly day which is extremely low. -Vertigo secondary to trauma to the labyrinthine apparatus or inner ear -Mild hyperkalemia: Repeat the basic metabolic profile tomorrow -Type 2 diabetes mellitus - asthma without any acute exacerbation -history of DVT in the past presently not on any anticoagulation -History of aortic stenosis inpatient the has had TAVR in the past DVT prophylaxis: Lovenox Past Medical History Past Medical History: Asthma, Diabetes Mellitus, Deep Vein Thrombosis (DVT), GERD/Reflux, Hyperlipidemia, Mitral Valve Prolapse (MVP), Thyroid Disorder Additional Past Medical History / Comment(s): left eye stroke, viral induced asthma, type 2 diabetes but gets low blood sugar, severe DDD lower back History of Any Multi-Drug Resistant Organisms: None Reported Past Surgical History: Bariatric Surgery, Cholecystectomy, Hysterectomy, Joint Replacement, Tonsillectomy Additional Past Surgical History / Comment(s): bilat knees, lap band, lap band removal 8- Past Anesthesia/Blood Transfusion Reactions: No Reported Reaction Past Psychological History: Anxiety, Depression Smoking Status: Former smoker Past Alcohol Use History: Rare Past Drug Use History: None Reported - Past Family History Brother(s) Family Medical History: Cancer Additional Family Medical History / Comment(s): lung Medications and Allergies Home Medications Medication Instructions Recorded Confirmed Type Cholecalciferol (Vitamin D3) 2,000 unit PO BID 01/27/17 03/23/21 History [Vitamin D3] Levothyroxine Sodium [Synthroid] 125 mcg PO DAILY 01/27/17 03/23/21 History Multivit-Min/FA/Lycopen/Lutein 1 tab PO HS 01/27/17 03/23/21 History [Centrum Silver Tablet] Tolterodine Tartrate [Detrol LA] 4 mg PO HS 01/27/17 03/23/21 History Venlafaxine HCl [Effexor XR] 150 mg PO HS 01/27/17 03/23/21 History Omeprazole [PriLOSEC] 20 mg PO AC-BRKFST 03/23/18 03/23/21 History ALPRAZolam [Xanax] 0.5 mg PO HS 03/23/21 03/23/21 History Ascorbic Acid [Vitamin C] 500 mg PO HS 03/23/21 03/23/21 History Aspirin EC [Ecotrin Low Dose] 81 mg PO HS 03/23/21 03/23/21 History Glimepiride [Amaryl] 2 mg PO AC-BRKFST 03/23/21 03/23/21 History Meclizine [Antivert] 12.5 mg PO TID PRN 03/23/21 03/23/21 History traMADol HCL 50 mg PO TID PRN 03/23/21 03/23/21 History Allergies Allergy/AdvReac Type Severity Reaction Status Date / Time ciprofloxacin [From Cipro] Allergy made eyes Verified 03/23/21 12:54 red from the gtts Penicillins Allergy Unknown Verified 03/23/21 12:54 Physical Exam Vitals: Vital Signs Temp Pulse Resp BP Pulse Ox 03/23/21 13:00 66 18 98 03/23/21 12:00 67 18 133/74 98 03/23/21 11:52 66 18 141/73 98 03/23/21 11:44 67 18 133/74 98 03/23/21 11:37 68 18 145/80 98 03/23/21 11:22 67 18 144/82 98 03/23/21 11:07 65 18 144/82 98 03/23/21 10:44 68 18 95 03/23/21 10:38 98.1 F 87 18 164/85 98 Intake and Output 03/22/21 03/23/21 03/23/21 22:59 06:59 14:59 Other: Weight 102.058 kg Results CBC & Chem 7: 03/23/21 11:24 03/23/21 11:24 Labs: Abnormal Lab Results - Last 24 Hours (Table) 03/23/21 03/23/21 03/23/21 Range/Units 10:55 11:24 11:24 APTT 21.2 L (22.0-30.0) sec Sodium 135 L (137-145) mmol/L Potassium 5.2 H (3.5-5.1) mmol/L BUN 33 H (7-17) mg/dL Glucose 216 H (74-99) mg/dL POC Glucose (mg/dL) 221 H (75-99) mg/dL Alkaline Phosphatase 139 H (38-126) U/L
--- NOTE | 2021-03-23 15:13 | XR ---
EXAMINATION TYPE: XR chest 2V DATE OF EXAM: 03/23/2021 COMPARISON: 12/19/2018 TECHNIQUE: PA and lateral views submitted. HISTORY: Altered mental status FINDINGS: The lungs are clear and there is no pneumothorax, pleural effusion, or focal pneumonia. Heart size stable. Suggestion of previous aortic intervention. Atherosclerotic change aorta. Mild hyperinflation . Degenerative changes of the spine. Surgical clips in the abdomen. IMPRESSION: 1. No acute process.
--- NOTE | 2021-03-23 16:12 | CT ---
EXAMINATION TYPE: CT angio head neck DATE OF EXAM: 03/23/2021 HISTORY: COMPARISON: None CT DLP: 1951.5 mGycm. Automated Exposure Control for Dose Reduction was Utilized. TECHNIQUE: CTA scan of the neck is performed with IV Contrast, patient injected with 75 mL of Isovue 370, axial images are obtained, coronal and sagittal reformatted images are reviewed. Three-D recons tructed images are created on an independent workstation and reviewed. Source images are reviewed. FINDINGS: Carotid/Vascular Structures: There is a 3 vessel arch. Vertebral arteries are codominant. The0 caroti d bifurcations appear normal without significant flow-limiting stenosis. Some atheromatous plaquing i s noted on the left carotid bifurcation. Vertebral arteries and internal carotid arteries are patent to the level of the skull base. NASCET criteria was used in interpretation of this exam.? Cervical of Barclay: Vertebral basilar system appears normal. Posterior cerebral vasculature is unrema rkable. Internal carotid arteries bifurcate normally into A1 and M1 segments. Right A1 segment appear s slightly hypoplastic. A2 segments are normal. The anterior communicating artery is patent. Left Pos terior communicating artery is absent. Right posterior communicating artery is patent. Other: Lung apices through the field of view are clear. Portion of the thyroid visualized is normal. IMPRESSION: 1. No flow-limiting stenosis bilateral carotid bifurcations. 2. Normal modoc of Barclay
[2021-03-23] MEDS ORDERED: ARTIFICIAL TEARS-HYPROMELLOSE DROPS 15 ML BTL BOTH EYES PRN (16:14)
--- NOTE | 2021-03-23 16:14 | CT ---
EXAMINATION TYPE: CT brain wo con for TPA DATE OF EXAM: 03/23/2021 COMPARISON: 03/09/2021 INDICATION: Neuro deficit acute stroke facial droop DLP: 1951.5 mGycm, Automated exposure control for dose reduction was used. CONTRAST: None CT of the brain is performed utilizing 3 mm thick sections through the posterior fossa and 3 mm thick sections through the remaining calvarium. Study is performed within 24 hours of arrival to the hosp [facility]. No abnormal hyperdensity is present to suggest an acute intracranial hemorrhage. No mass lesion is evident. No acute infarcts are evident. There is periventricular white matter hypodensity which is nonspecific but can be related to microvascular ischemic change. This is slightly more focal in the left garcia radiata, present previously. Ventricles and sulci are prominent for the patient age. Extra-axial spaces are prominent. Paranasal sinuses and mastoid air cells within the [id number] are clear. IMPRESSIONS: 1. Age-related atrophy with chronic appearing periventricular white matter ischemic type changes.
--- NOTE | 2021-03-23 16:36 | P.CNNES ---
History of Present Illness Consult date: 03/23/21 Requesting physician: Mo Chacko Reason for Consult: Rule out CVA, right facial droop History of Present Illness: Patient is a 86-year-old right-handed female with history of intermittent vertigo, came to the hospital for right facial weakness. Patient states that about 1-1/2 weeks ago she suffered from a fall. She went in the middle of the night to go to the bathroom. After passing the urine, she was coming back, when she became dizzy, developed cramping in stomach, and then passed out, hit her head producing a black eye. She did not go to ER. She saw her primary physician the next day, who diagnosed with vasovagal syncope, ordered computed tomography scan of the head which was normal. She was given meclizine for vertigo. Patient has been feeling dizzy quite often when she is standing, but develops vertigo when she lays down. Patient has been complaining of pain in the right ear, and also in the retroauricular area for last couple days. This morning patient went to see her primary physician for persistent right ear pain, when she noticed inability to close the right eye, and also noticed crooked smile, with right facial droopiness. She was referred to ER for further evaluation. Patient denies any slurred speech, dysphagia, problem with the vision, hoarseness, focal numbness tingling weakness. Patient denies loss of taste sensation, or any problems with hearing. Denies excessive lacrimation. She in fact has dry eyes. Patient has history of sporadic vertigo off and on for the last 4 years. She relates her vertigo to the episodes of sinus congestion, mainly occurs when she lays in the bed during those periods of time. By the next morning, her symptoms are usually gone. She gets this vertigo only once a year, but nothing like this time that it is persisting. Patient has history of TAVR one year ago. She is currently on aspirin 81 mg daily. Patient has diabetes for last 10-15 years, which is controlled. No hypertension. She was a light smoker, quit in 1969. Very occasionally drinks alcohol. 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 Patient states that over time her visual symptoms improved, although she has residual rounded visual scotoma persistent in the upper nasal visual field of the left eye. She has dry eyes. add test results Review of Systems As above in detail. All other 14 point review of systems reviewed and unremarkable. Patient denies any fever or chills. Complains of some headache. Right retroauricular and auricular pain. Patient has arthritis, bilateral knee surgeries. Past Medical History Past Medical History: Asthma, Diabetes Mellitus, Deep Vein Thrombosis (DVT), GERD/Reflux, Hyperlipidemia, Mitral Valve Prolapse (MVP), Thyroid Disorder Additional Past Medical History / Comment(s): left eye stroke, viral induced asthma, type 2 diabetes but gets low blood sugar, severe DDD lower back History of Any Multi-Drug Resistant Organisms: None Reported Past Surgical History: Bariatric Surgery, Cholecystectomy, Hysterectomy, Joint Replacement, Tonsillectomy Additional Past Surgical History / Comment(s): bilat knees, lap band, lap band removal 8- Past Anesthesia/Blood Transfusion Reactions: No Reported Reaction Past Psychological History: Anxiety, Depression Smoking Status: Former smoker Past Alcohol Use History: Rare Past Drug Use History: None Reported - Past Family History Brother(s) Family Medical History: Cancer Additional Family Medical History / Comment(s): lung Medications and Allergies Home Medications Medication Instructions Recorded Confirmed Type Cholecalciferol (Vitamin D3) 2,000 unit PO BID 01/27/17 03/23/21 History [Vitamin D3] Levothyroxine Sodium [Synthroid] 125 mcg PO DAILY 01/27/17 03/23/21 History Multivit-Min/FA/Lycopen/Lutein 1 tab PO HS 01/27/17 03/23/21 History [Centrum Silver Tablet] Tolterodine Tartrate [Detrol LA] 4 mg PO HS 01/27/17 03/23/21 History Venlafaxine HCl [Effexor XR] 150 mg PO HS 01/27/17 03/23/21 History Omeprazole [PriLOSEC] 20 mg PO AC-BRKFST 03/23/18 03/23/21 History ALPRAZolam [Xanax] 0.5 mg PO HS 03/23/21 03/23/21 History Ascorbic Acid [Vitamin C] 500 mg PO HS 03/23/21 03/23/21 History Aspirin EC [Ecotrin Low Dose] 81 mg PO HS 03/23/21 03/23/21 History Glimepiride [Amaryl] 2 mg PO AC-BRKFST 03/23/21 03/23/21 History Meclizine [Antivert] 12.5 mg PO TID PRN 03/23/21 03/23/21 History traMADol HCL 50 mg PO TID PRN 03/23/21 03/23/21 History Allergies Allergy/AdvReac Type Severity Reaction Status Date / Time ciprofloxacin [From Cipro] Allergy made eyes Verified 03/23/21 12:54 red from the gtts Penicillins Allergy Unknown Verified 03/23/21 12:54 Physical Examination - Vital Signs Vital Signs: Vital Signs Temp Pulse Resp BP Pulse Ox 03/23/21 13:00 66 18 98 03/23/21 12:00 67 18 133/74 98 03/23/21 11:52 66 18 141/73 98 03/23/21 11:44 67 18 133/74 98 03/23/21 11:37 68 18 145/80 98 03/23/21 11:22 67 18 144/82 98 03/23/21 11:07 65 18 144/82 98 03/23/21 10:44 68 18 95 03/23/21 10:38 98.1 F 87 18 164/85 98 Intake and Output 03/23/21 03/23/21 03/23/21 06:59 14:59 22:59 Other: Weight 102.058 kg Patient is an elderly female, very pleasant, in no acute distress. Patient is alert awake oriented to time place and person. Speech and language functions are normal. Attention, concentration and fund of knowledge is adequate. No aphasia or dysarthria. On cranial examination, pupils are equal, round and reacting to light, visual orozco are full on confrontation with both eyes open, extraocular muscles are intact with no nystagmus. Patient has right facial weakness, peripheral type, involving the upper and lower part of the face. Her tongue protrudes to the midline. Palatal elevation and sensation normal, hearing and shoulder shrug normal, facial sensation normal. Uvula midline. Otologic examination revealed normal appearing eardrums on the right. No excessive wax. No vesicles. Her right pinna appears somewhat red and slightly swollen. On muscle strength testing, there is no pronator drift and the strength is nor mal in arms and legs distally and proximally. Deep tendon reflexes are 2 in the upper limbs, 1 in the lower limbs and plantars downgoing bilaterally. Sensory to touch is equal with no neglect to double simultaneous stimulation. Cerebellar function showed mild ataxia/tremulousness for [id number] testing only on the right, which is her dominant hand, but not on the left. No dysdiadochokinesia. Tone and bulk of muscles normal. Gait deferred. On general examination, there is no carotid bruit or murmur, S1-S2 audible. Abdomen is soft nontender. Chest is clear. Peripheral pulses are present. No edema. 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 Central ischemia less likely. The only concerning finding is mild ataxia/tremulousness for [id number] testing on the right. * History of vasovagal syncope 1-1/2 weeks ago. Patient has subsequently developed intermittent dizziness and vertigo. Patient does have history of benign positional vertigo for last 4 years. 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 * History of TAVR * Diabetes * Obesity Plan: * Agree with continuing prednisone 60 mg daily for 5 days and then decrease by 10 mg daily until off. * Valtrex 1 g 3 times a day for 7 days. * MRI of the brain rule out CVA. * Computed tomography scan of the head is normal. * CTA of head and neck is normal. * Continue aspirin 81 mg daily for now. * Artificial tears.
[2021-03-23 16:44] LABS: Glucose,Whole Blood 296 mg/dL (75-99)
[2021-03-23] MEDS: valACYclovir 500 MG TAB PO SCH ×2 (17:45→20:47)
[2021-03-23] MEDS: INSULIN ASPART (NovoLOG) 100 UNIT/ML VIAL SQ SCH ×2 (17:45→20:50)
[2021-03-23 20:19] LABS: Glucose,Whole Blood 297 mg/dL (75-99)
[2021-03-23] MEDS: CHOLECALCIFEROL 25 MCG (1000 IU) TABLET PO SCH (20:48)
[2021-03-23] MEDS ORDERED: OXYBUTYNIN XL 5 MG TAB.ER.24 PO SCH (21:00)
[2021-03-23] MEDS ORDERED: ASPIRIN 81 MG PO SCH (21:00)
[2021-03-23] MEDS ORDERED: VENLAFAXINE HCL ER 150 MG CAP PO SCH (21:00)
[2021-03-24 06:13] LABS: Glucose,Whole Blood 133 mg/dL (75-99)
[2021-03-24] MEDS ORDERED: LEVOTHYROXINE 125 MCG TAB PO SCH (06:30)
[2021-03-24] MEDS: INSULIN ASPART (NovoLOG) 100 UNIT/ML VIAL SQ SCH ×3 (06:34→19:27)
[2021-03-24] MEDS ORDERED: GLIMEPIRIDE 2 MG TAB PO SCH (07:30)
[2021-03-24] MEDS ORDERED: PANTOPRAZOLE 40 MG TABLET PO SCH (07:30)
[2021-03-24 08:29] VITALS: TEMP 97.7
[2021-03-24] MEDS ORDERED: ASPIRIN 325 MG TAB PO SCH (09:00)
[2021-03-24] MEDS ORDERED: predniSONE 20 MG TAB PO SCH ×2 (09:00)
[2021-03-24] MEDS: CHOLECALCIFEROL 25 MCG (1000 IU) TABLET PO SCH (09:26)
[2021-03-24] MEDS: valACYclovir 500 MG TAB PO SCH ×2 (09:27→15:46)
[2021-03-24 11:34] LABS: Chol/HDL Ratio 3.43; LDL Cholesterol,Calculated 123.8 mg/dL (0.0-131.0); VLDL Calculation 24.2 mg/dL (5.00-40.00)
[2021-03-24 11:55] LABS: Glucose,Whole Blood 214 mg/dL (75-99)
[2021-03-24 12:29] VITALS: RESP 18
--- NOTE | 2021-03-24 13:45 | ECHOF ---
Referral Reason:Thrombus MEASUREMENTS -------- HEIGHT: 162.6 cm WEIGHT: 102.1 kg BP: RVIDd: 1.9 cm (< 3.3) IVSd: 1.6 cm (0.6 - 1.1) LVIDd: 3.9 cm (3.9 - 5.3) LVPWd: 1.3 cm (0.6 - 1.1) IVSs: 2.0 cm LVIDs: 2.5 cm LVPWs: 1.9 cm Ao Diam: 3.1 cm (2.0 - 3.7) AV Cusp: 1.6 cm (1.5 - 2.6) LA Diam: 3.7 cm (2.7 - 3.8) MV EXCURSION: 11.106 mm (> 18.000) MV EF SLOPE: 39 mm/s (70 - 150) EPSS: 0.6 cm MV E Hiram: 1.29 m/s MV DecT: 304 ms MV A Hiram: 0.95 m/s MV E/A Ratio: 1.36 AV maxP.41 mmHg AV meanP.64 mmHg RAP: 5.00 mmHg RVSP: 25.57 mmHg FINDINGS -------- This was a technically difficult study with suboptimal views. The left ventricular size is normal. There is moderate concentric left ventricular hypertrophy. O verall left ventricular systolic function is normal with, an EF between 55 - 60 %. The right ventricle is normal in size. The left atrial size is normal. The right atrial size is normal. Lumason used Peak/mean gradient across the Aortic Valve is 8.41mmHg / 4.64mmHg. TAVR procedure done The mitral valve is normal. There is trace mitral regurgitation. The tricuspid valve appears structurally normal. Mild tricuspid regurgitation present. Right vent ricular systolic pressure is normal at < 35 mmHg. There is no pulmonic regurgitation present. The aortic root size is normal. IVC Not well visulized. There is no pericardial effusion. CONCLUSIONS -------- 1. The left ventricular size is normal. 2. There is moderate concentric left ventricular hypertrophy. 3. Overall left ventricular systolic function is normal with, an EF between 55 - 60 %. 4. Peak/mean gradient across the Aortic Valve is 8.41mmHg / 4.64mmHg. 5. TAVR procedure done 6. There is trace mitral regurgitation. 7. Mild tricuspid regurgitation present. 8. There is no pericardial effusion. SALVAGE GRINDER: Sari Lemon RDCS
--- NOTE | 2021-03-24 14:44 | P.PN ---
Subjective Progress Note Date: 03/24/21 86-year-old female was sent in from PCPs office because of the facial droop on the right side. Patient had a fall about a week ago started having vertiginous symptoms about a 4:30 days ago. Patient is also having earache and ear pain. Denied any fever chills. Denied nausea vomiting. Patient noticed facial droop today morning because of which patient was seen in PCPs office and was subsequent recent in here. 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 Patient is being admitted at for workup for several vascular accident, brain CT and head and neck angiographic CT readings are still pending. Patient was started on steroids w hich will be continued at a low dose. Patient does have a perioral numbness in the right side 03/24/2021 Patient is evaluated today the bedside. Patient denies any headache, dizziness, lightheadedness. She states that she does have a history of vertigo that is usually intermittent. Patient states that when she is up ambulating, she is not having any dizziness or lightheadedness. Patient is planning an MRI to rule out CVA. Patient is being followed by neurology. Patient's being treated him for Hylton's palsy, with symptoms of right-sided facial paralysis. Patient states that this is slowly improving. Patient hasn't placed on a course of steroid taper, Valtrex. 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 Patient states that her right eye does feel dry, and it is unable to close all the way bedtime. Patient is receiving artificial tears for this, advised that patient may patch her eye as needed to give it a rest. GI patient denies any chest pain, cough, shortness of breath. Echocardiogram revealed an EF of 55-60%, trace mitral regurgitation, mild tricuspid regurgitation, history of TAVR. Patient's cholesterol panel is slightly e levated, cholesterol 209, HDL 61. Patient will be placed on a statin on discharge, for stroke prophylaxis. Vital signs are stable today, temp 97.7, heart rate 72 sinus rhythm, blood pressure 1:30/81, 96% on room air. ROS: Constitutional: Denied any fatigue denied any fever. Cardio vascular: denied any chest pain, palpitations Gastrointestinal denied any nausea vomiting Pulmonary: Denied any shortness of breath cough Neurologic Reports right facial droop, unable to fully close right eye lid, denies focal weakness to the right extremity, denies dizziness or lightheadednes s at this time. All inpatient medications were reviewed and appropriate changes in these medications as dictated in the interval history and assessment and plan. PHYSICAL EXAMINATION: GENERAL: The patient is alert and oriented x3, not in any acute distress. Well developed, well nourished. HEENT: Pupils are round and equally reacting to light. EOMI. No scleral icterus. No conjunctival pallor. Normocephalic, atraumatic. Right eye droop, erythema to the left auricle. CARDIOVASCULAR: S1 and S2 present. No murmurs, rubs, or gallops. PULMONARY: Chest is clear to auscultation, no wheezing or crackles. ABDOMEN: Soft, nontender, nondistended, normoactive bowel sounds. No palpable organomegaly. MUSCULOSKELETAL: No joint swelling or deformity. EXTREMITIES: No cyanosis, clubbing, or pedal edema. NEUROLOGICAL: Gross neurological examination did not reveal any focal deficits. SKIN: No rashes. 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 Patient is undergoing workup for several vascular accident possibly day which is extremely low. 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 Patient will complete a course of steroid taper, Valtrex on discharge. Patient will also be sent home on artificial tears, patch eye as needed. Patient will continue on Lovenox this admission. Discharge pending MRI, neuro clearance. Objective - Vital Signs Vital signs: Vital Signs Temp 97.7 F 03/24/21 12:00 Pulse 72 03/24/21 12:00 Resp 18 03/24/21 12:00 BP 138/81 03/24/21 12:00 Pulse Ox 96 03/24/21 12:00 Intake & Output 03/23/21 03/24/21 03/24/21 18:59 06:59 18:59 Intake Total 240 240 240 Balance 240 240 240 Weight 102.058 kg 104.2 kg Intake: Oral 240 240 240 Other: Voiding Method Toilet Toilet # Voids 1 1 - Labs CBC & Chem 7: 03/23/21 11:24 03/23/21 11:24 Labs: Abnormal Lab Results - Last 24 Hours (Table) 03/23/21 03/23/21 03/24/21 Range/Units 16:43 20:18 06:12 POC Glucose (mg/dL) 296 H 297 H 133 H (75-99) mg/dL Cholesterol (0-200) mg/dL HDL Cholesterol (40.0-60.0) mg/dL 03/24/21 03/24/21 Range/Units 07:35 11:53 POC Glucose (mg/dL) 214 H (75-99) mg/dL Cholesterol 209 H (0-200) mg/dL HDL Cholesterol 61.0 H (40.0-60.0) mg/dL
[2021-03-24] MEDS ORDERED: LORazepam 2 MG/ML INJ IV PRN (15:22)
--- NOTE | 2021-03-24 16:04 | P.DS ---
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 -Vertigo secondary to trauma to the labyrinthine apparatus or inner ear, follow- up with ENT, course of antibiotic therapy. Continue on home Antivert as needed -Mild hyperkalemia: Repeat in 2 days -Type 2 diabetes mellitus - asthma without any acute exacerbation -History hyperlipidemia, cholesterol 209, HDL 61, LDL 123 -history of DVT in the past presently not on any anticoagulation -History of aortic stenosis inpatient the has had TAVR in the past DVT prophylaxis: Lovenox Discharge disposition Patient is discharged home in stable condition after her MRI. Patient is being treated for an acute Hylton's palsy secondary to traumatic inflammation of the middle ear. Patient will be started on a prednisone taper, course of antibiotic therapy, 7 day therapy with Valtrex. Patient will follow up with ENT post discharge. Patient has a history of vertigo, continue with Antivert as needed. Cardiology has cleared patient, follow-up as needed. Hospital course 86-year-old female was sent in from PCPs office because of the facial droop on the right side. Patient had a fall about a week ago started having vertiginous symptoms about a 4:30 days ago. Patient is also having earache and ear pain. Denied any fever chills. Denied nausea vomiting. Patient noticed facial droop today morning because of which patient was seen in PCPs office and was subsequent recent in here. 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 Patient is being admitted at for workup for several vascular accident, brain CT and head and neck angiographic CT readings are still pending. Patient was started on steroids which will be continued at a low dose. Patient does have a perioral numbness in the right side. Echocardiogram this admission revealed an ejection fraction of 55-60%, trace mitral regurgitation, mild tricuspid regurgitation. Chest x-ray was negative for an acute process. Brain CT revealed age-related atrophy with chronic appearing periventricular white matter ischemic type changes. CT angiography revealed no filling stenosis bilateral carotid bifurcations, normal [place] of [place]. Brain CT and CTA were negative for an acute infarct. Patient is being followed by neurology was recommending a follow-up MRI. If MRI is negative for acute infarct, patient is discharged home with a follow-up with primary care provider. Patient will also follow-up with ENT. Patient's blood count within normal limits,, Chem panel reveals potassium of 5.2, cholesterol of 209, HDL 61, LDL 123. Recommend heart healthy diet, follow-up in the office of PCP for repeat. 03/24/2021 Patient is evaluated today the bedside. Patient denies any headache, dizziness, lightheadedness. She states that she does have a history of vertigo that is usually intermittent. Patient states that when she is up ambulating, she is not having any dizziness or lightheadedness. Patient is planning an MRI to rule out CVA. Patient is being followed by neurology. Patient's being treated him for Hylton's palsy, with symptoms of right-sided facial paralysis. Patient states that this is slowly improving. Patient hasn't placed on a course of steroid taper, Valtrex. 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 Patient states that her right eye does feel dry, and it is unable to close all the way bedtime. Patient is receiving artificial tears for this, advised that patient may patch her eye as needed to give it a rest. GI patient denies any chest pain, cough, shortness of breath. Vital signs are stable today, temp 97.7, heart rate 72 sinus rhythm, blood pressure 1:30/81, 96% on room air. Please see medication reconciliation for a list of current medications. Patient Condition at Discharge: Stable Plan - Discharge Summary Discharge Rx Participant: No New Discharge Prescriptions: New Artificial Tears-Hypromellose [Artificial Tear Drops] 1 drops BOTH EYES QID PRN #0 bottle PRN Reason: Dry Eye(S) Azithromycin 250 mg PO DAILY 1 Days #5 tab methylPREDNISolone Dose Pack [Medrol Dose Pack] 4 mg PO DIRECTED #21 package valACYclovir [Valtrex] 1,000 mg PO TID 7 Days #21 tab Continue Venlafaxine HCl [Effexor XR] 150 mg PO HS Levothyroxine Sodium [Synthroid] 125 mcg PO DAILY Tolterodine Tartrate [Detrol LA] 4 mg PO HS Cholecalciferol (Vitamin D3) [Vitamin D3] 2,000 unit PO BID Multivit-Min/FA/Lycopen/Lutein [Centrum Silver Tablet] 1 tab PO HS Omeprazole [PriLOSEC] [address] [facility] Aspirin EC [Ecotrin Low Dose] 81 mg PO HS traMADol HCL 50 mg PO TID PRN PRN Reason: Pain Meclizine [Antivert] 12.5 mg PO TID PRN PRN Reason: DIZZINESS Ascorbic Acid [Vitamin C] 500 mg PO HS ALPRAZolam [Xanax] 0.5 mg PO HS Glimepiride [Amaryl] [address] [facility] Discharge Medication List Cholecalciferol (Vitamin D3) [Vitamin D3] 2,000 unit PO BID 01/27/17 [History] Levothyroxine Sodium [Synthroid] 125 mcg PO DAILY 01/27/17 [History] Multivit-Min/FA/Lycopen/Lutein [Centrum Silver Tablet] 1 tab PO HS 01/27/17 [History] Tolterodine Tartrate [Detrol LA] 4 mg PO HS 01/27/17 [History] Venlafaxine HCl [Effexor XR] 150 mg PO HS 01/27/17 [History] Omeprazole [[facility]LOSEC] [facility] 03/23/18 [History] ALPRAZolam [Xanax] 0.5 mg PO HS 03/23/21 [History] Ascorbic Acid [Vitamin C] 500 mg PO HS 03/23/21 [History] Aspirin EC [Ecotrin Low Dose] 81 mg PO HS 03/23/21 [History] Glimepiride [Amaryl] 2 mg [facility] 03/23/21 [History] Meclizine [Antivert] 12.5 mg PO TID PRN 03/23/21 [History] traMADol HCL 50 mg PO TID PRN 03/23/21 [History] Artificial Tears-Hypromellose [Artificial Tear Drops] 1 drops BOTH EYES QID PRN #0 bottle 03/24/21 [Rx] Azithromycin 250 mg PO DAILY 1 Days #5 tab 03/24/21 [Rx] methylPREDNISolone Dose Pack [Medrol Dose Pack] 4 mg PO DIRECTED #21 package 03/24/21 [Rx] valACYclovir [Valtrex] 1,000 mg PO TID 7 Days #21 tab 03/24/21 [Rx] Follow up Appointment(s)/Referral(s): Vladimir Miller MD [Primary Care Provider] - 1-2 days Activity/Diet/Wound Care/Special Instructions: Please continue with artificial tears during the day, eye patches at night. Follow-up with PCP, follow-up with neurology as needed Discharge pending MRI, neurology clearance. Discharge Disposition: HOME SELF-CARE
[2021-03-24 17:27] VITALS: BP 158/74; PULSE 78
[2021-03-24 18:33] LABS: Glucose,Whole Blood 265 mg/dL (75-99)
--- NOTE | 2021-03-24 18:36 | MR ---
MRI OF THE BRAIN WO History: Right facial weakness. Rule out CVA. COMPARISON: CT 03/23/2021. TECHNIQUE: Multiplanar multisequence MR imaging of the brain was obtained without the use of IV cont rast. FINDINGS: No restricted diffusion is noted to suggest acute ischemic infarct.No acute intracranial hemorrhage o r abnormal extra-axial fluid collection are noted.There is no midline shift or mass effect. There is moderate white matter T2 FLAIR hyperintensity, in keeping with chronic microvascular ischemic changes . There is mild parenchymal volume loss. Visualized vascular flow voids are unremarkable. Visualized paranasal sinuses and mastoid air cells are patent and aerated. IMPRESSION: No acute infarct or intracranial abnormality. Chronic microvascular ischemic changes.
[2021-03-24] MEDS ORDERED: INSULIN ASPART (NovoLOG) 100 UNIT/ML VIAL SQ ONE (19:17)
[2021-03-24] MEDS ORDERED: INSULN ASP PRT/INSULIN ASPART 100 UNIT/ML 10 ML VIAL SQ ONE (19:30)
--- NOTE | 2021-03-27 15:11 | P.PN ---
Subjective Progress Note Date: 03/24/21 Patient was seen for a follow-up. Patient is doing well. No new focal symptoms. Continues to have right facial weakness. Her pain has improved. Objective - Vital Signs Vital signs: Vital Signs Temp 97.7 F 03/24/21 16:00 Pulse 78 03/24/21 16:00 Resp 18 03/24/21 16:00 BP 158/74 03/24/21 16:00 Pulse Ox 96 03/24/21 16:00 Intake & Output 03/24/21 03/24/21 03/25/21 06:59 18:59 06:59 Intake Total 240 480 Balance 240 480 Weight 104.2 kg Intake: Oral 240 480 Other: Voiding Method Toilet Toilet # Voids 1 1 - Exam Normal except for right facial weakness, peripheral type. Mentation completely normal. Left-sided dysmetria resolved. - Labs CBC & Chem 7: 03/23/21 11:24 03/23/21 11:24 Labs: Abnormal Lab Results - Last 24 Hours (Table) 03/23/21 03/24/21 03/24/21 Range/Units 20:18 06:12 07:35 POC Glucose (mg/dL) 297 H 133 H (75-99) mg/dL Cholesterol 209 H (0-200) mg/dL HDL Cholesterol 61.0 H (40.0-60.0) mg/dL 03/24/21 03/24/21 Range/Units 11:53 18:29 POC Glucose (mg/dL) 214 H 265 H (75-99) mg/dL Cholesterol (0-200) mg/dL HDL Cholesterol (40.0-60.0) mg/dL Assessment and Plan Assessment: * Right Hylton's palsy. MRI ruled out any ischemia. * History of vasovagal syncope 1-1/2 weeks ago. Patient has subsequently developed intermittent dizziness and vertigo. Patient does have history of benign positional vertigo for last 4 years. 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 * History of TAVR * Diabetes * Obesity Plan: * Continue prednisone 60 mg daily for 5 days and then decrease by 10 mg daily until off. * Valtrex 1 g 3 times a day for 7 days. * MRI of the brain revealed no acute infarct or intracranial abnormality. Chronic microvascular ischemic change. * Computed tomography scan of the head is normal. * CTA of head and neck is normal. * Continue aspirin 81 mg daily for now. * Artificial tears. * Neurologically clear for discharge.
== END 2021-03-24 20:12 | disposition home or self-care (01) ==
LOC: EC 10:37 → 3SCARD 13:05 → INTOOBSV 13:05 → 3SCARD 14:24 → UNDODISIN 03-24 20:12
PROVIDERS: ADMIT Internal Medicine; ATTEND Internal Medicine
DX: G51.0 Bell's palsy (principal); E11.9 Type 2 diabetes mellitus without complications; H60.11 Cellulitis of right external ear; E07.9 Disorder of thyroid, unspecified; H83.2X1 Labyrinthine dysfunction, right ear; E87.5 Hyperkalemia; H81.10 Benign paroxysmal vertigo, unspecified ear; S00.10XA Contusion of unspecified eyelid and periocular area, initial encounter; E78.5 Hyperlipidemia, unspecified; J45.909 Unspecified asthma, uncomplicated; K21.9 Gastro-esophageal reflux disease without esophagitis; I08.0 Rheumatic disorders of both mitral and aortic valves; F41.9 Anxiety disorder, unspecified; F32.9 Major depressive disorder, single episode, unspecified; H04.123 Dry eye syndrome of bilateral lacrimal glands; I69.398 Other sequelae of cerebral infarction; H53.452 Other localized visual field defect, left eye; Z68.39 Body mass index [BMI] 39.0-39.9, adult; E66.9 Obesity, unspecified; Z79.82 Long term (current) use of aspirin; Z79.84 Long term (current) use of oral hypoglycemic drugs; Z79.890 Hormone replacement therapy; Z87.891 Personal history of nicotine dependence; Z79.899 Other long term (current) drug therapy; Z91.81 History of falling; Z87.820 Personal history of traumatic brain injury; Z86.718 Personal history of other venous thrombosis and embolism; Z95.2 Presence of prosthetic heart valve; Z98.84 Bariatric surgery status; Z90.49 Acquired absence of other specified parts of digestive tract; Z96.60 Presence of unspecified orthopedic joint implant; Z98.890 Other specified postprocedural states; Z88.1 Allergy status to other antibiotic agents; Z88.0 Allergy status to penicillin
CPT/HCPCS: 99285; 96374; 96361; 36415; 93005; 97161; 80061; 80053; 84484; 85025; 85610; 85730; 71046; 70496; 70450; 70498; 70551; G0378 ×2; C8929; J2060; J7512 ×2; Q9950; Q9967; 93306; 96360

== ENCOUNTER → 2021-05-18 | Outpatient (CLI) | payer MEDICARE ==
--- NOTE | 2021-05-18 14:15 | NM ---
EXAMINATION TYPE: NM bone 3 phase DATE OF EXAM: 05/18/2021 COMPARISON: Plain film right knee 05/10/2021 HISTORY: Pain in left lower leg, M79.662 Pain in left lower leg M79.661 Triple phase bone scintigraphy was performed following the injection of 24.8 mCi Tc 99m MDP. Immedia te images and 5.25 hours post injection images acquired of the pelvis and knees. FINDINGS: Photopenic areas at the knees consistent with patient's history of knee arthroplasties bila terally. There is symmetric uptake of pharmaceutical and blood flow, mild increased uptake noted posteriorly a t the level of the right knee as compared to left on blood pool imaging. Delayed imaging shows uptake along the proximal tibias bilaterally slightly increased on the right as compared to left. Soft tiss ue uptake is normal. IMPRESSION: Mild near symmetric uptake within the knees is indeterminate but consider trauma or stress changes, p rosthetic loosening is not excluded, infection felt to be less likely.
== END | disposition home or self-care (01) ==
LOC: RADNMMAIN 07:24
PROVIDERS: ATTEND Family Medicine
DX: M79.662 Pain in left lower leg (principal); M79.661 Pain in right lower leg
CPT/HCPCS: 78315; A9503

== ENCOUNTER → 2021-12-13 | Outpatient (CLI) | payer MEDICARE ==
--- NOTE | 2021-12-13 21:25 | XR ---
EXAMINATION TYPE: XR knee complete bilateral DATE OF EXAM: 12/13/2021 CLINICAL HISTORY: Bilateral knee pain with history of replacement for 20 years ago. TECHNIQUE: Three views of the bilateral knees are obtained. COMPARISON: Nuclear medicine 3 phase bone scan May 18, 2021. FINDINGS: There is no acute fracture/dislocation evident in either knee. Metallic hardware from bila teral knee arthroplasty is identified and is satisfactory in position bilaterally. Left proximal tibi al component contains 4 fixating screws, lateral one is breaking through the cortex at the metaphysea l level. No suspicious surrounding lucency to suggest loosening or infection. The overlying soft tiss ue appears unremarkable bilaterally. IMPRESSION: As above.
== END | disposition home or self-care (01) ==
LOC: RADXRMAIN 15:52
PROVIDERS: ATTEND Internal Medicine Geriatric Medicine
DX: M25.562 Pain in left knee (principal); M25.561 Pain in right knee; Z96.653 Presence of artificial knee joint, bilateral

== ENCOUNTER → 2021-12-17 | Outpatient (CLI) | payer MEDICARE ==
--- NOTE | 2021-12-20 10:36 | MM ---
Reason for exam: screening (asymptomatic). Last mammogram was performed 1 year and 2 months ago. History: Patient is postmenopausal and history of other cancer. Family history of breast cancer in maternal grandmother. Took hormonal contraceptives for 6 months. Took estrogen for 15 years beginning at age 50. Physical Findings: A clinical breast exam by your physician is recommended on an annual basis and results should be correlated with mammographic findings. MG 3D Screening Mammo W/Cad Bilateral CC and MLO view(s) were taken. Prior study comparison: October 15, 2020, bilateral MG 3d screening mammo w/cad. August 09, 2019, bilateral MG 3d screening mammo w/cad. There are scattered fibroglandular densities. There are benign appearing round, scattered calcifications bilaterally. There is chronic nodularity in the left breast. There is no discrete abnormality. ASSESSMENT: Benign, BI-RAD 2 RECOMMENDATION: Routine screening mammogram of both breasts in 1 year.
== END | disposition home or self-care (01) ==
LOC: RADMAMWWP 08:19
PROVIDERS: ATTEND Internal Medicine Geriatric Medicine
DX: Z12.31 Encounter for screening mammogram for malignant neoplasm of breast (principal); Z78.0 Asymptomatic menopausal state; Z80.3 Family history of malignant neoplasm of breast
CPT/HCPCS: 77063; 77067

== ENCOUNTER 2022-03-30 09:53 | Emergency (ER) | payer MEDICARE ==
[2022-03-30 09:59] VITALS: TEMP 98.2
[2022-03-30] MEDS ORDERED: KETOROLAC 15 MG/ML 1 ML VIAL IVP STA (10:08)
--- NOTE | 2022-03-30 10:13 | ED ---
Upper Extremity HPI - General Chief Complaint: Extremity Injury, Upper Stated Complaint: rt arm injury Time Seen by Provider: 03/30/22 10:00 Source: patient, RN notes reviewed Mode of arrival: ambulatory Limitations: no limitations - History of Present Illness Initial Comments: Patient is an 87-year-old female presents the emergency room after attempting to sit on a rolling chair on Monday (4 days ago) and the chair rolled out from under her causing her to fall to the ground. She states that she fell on her buttocks with her right arm extended. Since that time she has had progressively worsening right shoulder pain with limited range of motion. She denies any popping or cracking sounds when the trauma occurred. She denies any bruising or obvious dislocation. She denies previous injuries in that extremity. She has been using tramadol which she is prescribed for arthritic pain with no significant relief. She denies any redness, swelling, or skin wounds of the extremity. She denies any fevers or chills. She has a past medical history significant for asthma, diabetes, degenerative disc disease, bilateral knee pain, hyperlipidemia, GERD, and hypothyroidism. - Related Data Home Medications Medication Instructions Recorded Confirmed Cholecalciferol (Vitamin D3) 2,000 unit PO BID 01/27/17 03/23/21 [Vitamin D3] Levothyroxine Sodium [Synthroid] 125 mcg PO DAILY 01/27/17 03/23/21 Multivit-Min/FA/Lycopen/Lutein 1 tab PO HS 01/27/17 03/23/21 [Centrum Silver Tablet] Tolterodine Tartrate [Detrol LA] 4 mg PO HS 01/27/17 03/23/21 Venlafaxine HCl [Effexor XR] 150 mg PO HS 01/27/17 03/23/21 Omeprazole [PriLOSEC] 20 mg PO AC-BRKFST 03/23/18 03/23/21 ALPRAZolam [Xanax] 0.5 mg PO HS 03/23/21 03/23/21 Ascorbic Acid [Vitamin C] 500 mg PO HS 03/23/21 03/23/21 Aspirin EC [Ecotrin Low Dose] 81 mg PO HS 03/23/21 03/23/21 Glimepiride [Amaryl] 2 mg PO AC-BRKFST 03/23/21 03/23/21 Meclizine [Antivert] 12.5 mg PO TID PRN 03/23/21 03/23/21 traMADol HCL 50 mg PO TID PRN 03/23/21 03/23/21 Previous Rx's Medication Instructions Recorded Artificial Tears-Hypromellose 1 drops BOTH EYES QID PRN #0 bottle 03/24/21 [Artificial Tear Drops] Azithromycin 250 mg PO DAILY 1 Days #5 tab 03/24/21 methylPREDNISolone Dose Pack 4 mg PO DIRECTED #21 package 03/24/21 [Medrol Dose Pack] valACYclovir HCL [Valtrex] 1,000 mg PO TID 7 Days #21 tab 03/24/21 Allergies Allergy/AdvReac Type Severity Reaction Status Date / Time ciprofloxacin [From Cipro] Allergy made eyes Verified 03/30/22 09:59 red from the gtts Penicillins Allergy Unknown Verified 03/30/22 09:59 Review of Systems ROS Statement: Those systems with pertinent positive or pertinent negative responses have been documented in the HPI. ROS Other: All systems not noted in ROS Statement are negative. Past Medical History Past Medical History: Asthma, Diabetes Mellitus, Deep Vein Thrombosis (DVT), GERD/Reflux, Hyperlipidemia, Mitral Valve Prolapse (MVP), Thyroid Disorder Additional Past Medical History / Comment(s): left eye stroke, severe DDD lower back History of Any Multi-Drug Resistant Organisms: None Reported Past Surgical History: Bariatric Surgery, Cholecystectomy, Hysterectomy, Joint Replacement, Tonsillectomy Additional Past Surgical History / Comment(s): bilat knees, lap band, lap band removal 8-17, TAVR Past Anesthesia/Blood Transfusion Reactions: No Reported Reaction Past Psychological History: Anxiety, Depression Smoking Status: Former smoker Past Alcohol Use History: Rare Past Drug Use History: None Reported - Past Family History Brother(s) Family Medical History: Cancer Additional Family Medical History / Comment(s): lung General Exam Limitations: no limitations General appearance: alert, in no apparent distress Head exam: Present: atraumatic, normocephalic, normal inspection Eye exam: Present: normal appearance, PERRL, EOMI. Absent: scleral icterus, conjunctival injection, periorbital swelling ENT exam: Present: normal exam, mucous membranes moist Neck exam: Present: normal inspection. Absent: tenderness, meningismus, lymphadenopathy Respiratory exam: Present: normal lung sounds bilaterally. Absent: respiratory distress, wheezes, rales, rhonchi, stridor Cardiovascular Exam: Present: regular rate, normal rhythm, normal heart sounds. Absent: systolic murmur, diastolic murmur, rubs, gallop, clicks GI/Abdominal exam: Present: soft, normal bowel sounds. Absent: distended, tenderness, guarding, rebound, rigid Extremities exam: Present: normal capillary refill. Absent: pedal edema, joint swelling, calf tenderness Right Shoulder Exam: Absent: full ROM, tenderness, swelling, ecchymosis, deformity, crepitus, dislocation, erythema Vascular: Absent: vascular compromise Back exam: Present: normal inspection Neurological exam: Present: alert, oriented X3, CN II-XII intact Psychiatric exam: Present: normal affect, normal mood Skin exam: Present: warm, dry, intact, normal color. Absent: rash Course Vital Signs 03/30/22 09:55 Temperature 98.2 F Pulse Rate 86 Respiratory 20 Rate Blood Pressure 120/60 O2 Sat by Pulse 96 Oximetry Medical Decision Making - Medical Decision Making 87-year-old female with fall and progressively worsening right upper extremity pain with limited range of motion. No head trauma. No loss of consciousness or focal neurological deficits. Will check x-ray of right shoulder and give Toradol IM for pain relief. Will monitor symptoms. No indication for laboratory studies at this time. X-ray negative for fracture or dislocation. Pain likely secondary to irritation of chronic arthritis to her joint. Pain improved with Toradol. She reports that she recently saw a new provider and her primary care office and her Aleve that she was taking twice a day was stopped due to her creatinine being at 1.1 which she was advised was an increase however our records indicate that this is her baseline creatinine. Will discharge patient home with the use of Aleve cautiously over the next few days to help reduce inflammation. Advised follow-up with orthopedist if pain persist for further evaluation and potential MRI. Case discussed with Dr. Martinez. - Radiology Data Radiology results: report reviewed, image reviewed X-ray right shoulder complete: Findings: The osseous structures are intact. There is no acute fracture or dislocation. Diffuse osteopenia. Impression: 1. AC joint arthropathy. Density along the margin of the humeral head may be in the basis of calcification tendinitis. Of avulsion fracture is less likely recommend follow-up MRI. Disposition Clinical Impression: Strain of shoulder Disposition: HOME SELF-CARE Condition: Stable Instructions (If sedation given, give patient instructions): Shoulder Sprain (ED) Additional Instructions: Please utilize Aleve cautiously up to twice a day for the next several days to help reduce inflammation of the right shoulder. May alternate your tramadol that you have already for pain as well. Range of motion as tolerated encouraged. Please follow-up with your primary care provider. If symptoms continue to be bothersome please follow-up with your orthopedist whom your already established with. Please return to the Emergency Department if symptoms worsen or any other concerns. Is patient prescribed a controlled substance at d/c from ED?: No Referrals: Donnie Soto MD [Primary Care Provider] - 1-2 days Time of Disposition: 10:53
--- NOTE | 2022-03-30 10:31 | XR ---
EXAMINATION TYPE: XR shoulder complete RT DATE OF EXAM: 03/30/2022 COMPARISON: NONE HISTORY: Pain TECHNIQUE: Three views are submitted. FINDINGS: The osseous structures are intact. There is no acute fracture or dislocation. AC joint arthropathy. Diffuse osteopenia. Calcific density along the humeral head could be in the basis of chronic calcific tendinosis. IMPRESSION: 1. AC joint arthropathy. Density along the upper margin of the humeral head may be in the basis of ca lcific tendinosis. Avulsion fracture felt less likely. Recommend follow-up MRI.
[2022-03-30 11:18] VITALS: BP 116/72; PULSE 82; RESP 18
== END 2022-03-30 11:17 | disposition home or self-care (01) ==
LOC: EC 09:53
DX: S46.911A Strain of unspecified muscle, fascia and tendon at shoulder and upper arm level, right arm, initial encounter (principal); J45.909 Unspecified asthma, uncomplicated; K21.9 Gastro-esophageal reflux disease without esophagitis; E78.5 Hyperlipidemia, unspecified; E07.9 Disorder of thyroid, unspecified; E11.9 Type 2 diabetes mellitus without complications; Z86.718 Personal history of other venous thrombosis and embolism; Z88.1 Allergy status to other antibiotic agents; Z88.0 Allergy status to penicillin; Z79.82 Long term (current) use of aspirin; Z79.899 Other long term (current) drug therapy; W07.XXXA Fall from chair, initial encounter
CPT/HCPCS: 73030; 99283; 96374; J1885; 99284

== ENCOUNTER → 2022-06-10 | Outpatient (CLI) | payer MEDICARE ==
--- NOTE | 2022-06-11 01:14 | MR ---
EXAMINATION TYPE: MR lumbar spine wo/w con DATE OF EXAM: 06/10/2022 COMPARISON: 05/27/2017 HISTORY: Low back pain that radiates down both legs into knees, history of surgery CONTRAST: Standard multiplanar, multisequence MRI departmental protocol images were obtained without contrast a nd with 10 mL intravenous Gadavist gadolinium contrast. The lumbar vertebrae have fairly normal alignment. There is degenerative disc space narrowing from L2 to S1 with decreased signal in the disks. There is posterior fusion surgery with metal rods and scre ws from L2 to L3. There is posterior disc bulging from L1 to S1. No significant spinal stenosis. No l umbar paraspinal mass. Lumbar nerve roots appear fairly normal. There is mild narrowing of the neural foramina due to the disc space narrowing. No focal bone destruction. Contrast images show no patholo gic enhancement. IMPRESSION: Posterior fusion surgery at L2-3. No evidence of any significant spinal stenosis. Moderate multilevel lumbar spondylotic changes. No acute bony abnormality. No significant adverse change compared to old exam.
--- NOTE | 2022-06-11 01:16 | MR ---
EXAMINATION TYPE: MR cervical spine wo con DATE OF EXAM: 06/10/2022 COMPARISON: None HISTORY: Neck pain, falls. Multiplanar multiecho imaging of the cervical spine performed with no contrast. There is mild straightening of the cervical spine. There is disc space narrowing from C4 to C7 with m ild spurring of the endplates. There is mild posterior disc bulging from C3 to C7. There is developme ntally adequate spinal canal and no significant spinal stenosis. Spinal canal measures 8 mm at C5-6 w hich is the narrowest point. Cervical spinal cord shows no edema. The brainstem is intact. Prevertebr al soft tissues are intact. There is hypertrophic multilevel cervical facet arthropathy. No fracture seen. IMPRESSION: Multilevel spondylotic changes with posterior multilevel disc bulging. No significant spinal stenosis . No fracture.
== END | disposition home or self-care (01) ==
LOC: RADMRIMAIN 21:30
PROVIDERS: ATTEND Physician Assistant Medical
DX: M47.816 Spondylosis without myelopathy or radiculopathy, lumbar region (principal); M50.323 Other cervical disc degeneration at C6-C7 level; Z98.1 Arthrodesis status
CPT/HCPCS: 72141; 72158; A9585

== ENCOUNTER → 2022-08-16 | Outpatient (CLI) | payer MEDICARE ==
--- NOTE | 2022-08-16 15:32 | CT ---
EXAMINATION TYPE: CT lumbar spine wo con CT DLP: 988 mGycm, Automated exposure control for dose reduction was used. DATE OF EXAM: 08/16/2022 3:11 PM COMPARISON: 02/05/2018. 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 hx of fusion x4 years ago TECHNIQUE: Multiple axial images were obtained from the midportion of T11 through the sacroiliac anatoly nts. Soft tissue and bone windows in coronal and sagittal planes were obtained and reviewed. Contrast used: none. Oral contrast used: none. FINDINGS: Alignment: There are 5 lumbar type vertebral bodies. Retrolisthesis L2 on L3 which has been surgicall y stabilized. Bone: No evidence of acute fracture. There has been interval postsurgical changes with fixation hardw are L2-L3. Hardware is intact. There is multilevel osteophyte formation with disc space narrowing. Th e facet joint arthropathy is present. Mild osteophyte formation of the sacroiliac joints. Discs: T12-L1: No spinal canal or neural foraminal stenosis is identified. L1-L2: Facet joint arthropathy and disc bulging result in mild spinal canal stenosis and mild bilater al neural foraminal stenosis. L2-L3: Postsurgical changes limits evaluation secondary to metallic streak artifact at this level. No spinal canal or neural foraminal stenosis is identified. L3-L4: Facet joint arthropathy and disc bulging result in mild spinal canal stenosis and mild bilater al neural foraminal stenosis. L4-L5: Facet joint arthropathy and disc bulging result in mild spinal canal stenosis and mild bilate ral neural foraminal stenosis. L5-S1: No spinal canal or neural foraminal stenosis is identified. Other: The gallbladder surgically absent. IMPRESSION: 1. Interval postsurgical changes L2-L3 with hardware in appropriate position. There is stable retrol isthesis at L2-L3. 2. No CT evidence for significant spinal canal or neural foraminal stenosis.
== END | disposition home or self-care (01) ==
LOC: RADCTMAIN 14:51
PROVIDERS: ATTEND Orthopaedic Surgery Orthopaedic Surgery of the Spine
DX: M43.16 Spondylolisthesis, lumbar region (principal); M48.062 Spinal stenosis, lumbar region with neurogenic claudication; Z98.1 Arthrodesis status
CPT/HCPCS: 72131

== ENCOUNTER → 2023-02-03 | Outpatient (CLI) | payer MEDICARE ==
[2023-02-03 15:43] LABS: Basophils # (A) 0.07 X 10*3/uL (0.00-0.10); Basophils % (A) 1.1 %; Eosinophils # (A) 0.19 X 10*3/uL (0.04-0.35); HGB 12.5 d/dL (12.0-15.0); Lymphocytes # (A) 1.51 X 10*3/uL (0.90-5.00); Lymphocytes % (A) 23.6 %; MCH 27.9 pg (27.0-32.0); MCHC 29.8 d/dL (32.0-37.0); MCV 93.8 FL (80.0-97.0); Mean Platelet Volume 9.6 FL (9.5-12.2); Monocytes # (A) 0.49 X 10*3/uL (0.20-1.00); Monocytes % (A) 7.7 %; NRBC Per 100 WBC 0 X 10*3/uL (0.00-0.01); Neutrophils # (A) 4.11 X 10*3/uL (1.80-7.70); Neutrophils % (A) 64.3 %; Platelet Count 227 X 10*3/uL (140-440); RBC 4.48 X 10*6/uL (4.10-5.20); RDW 13.7 % (11.5-14.5); WBC 6.39 X 10*3/uL (4.50-10.00)
[2023-02-03 15:51] LABS: ALT 23 U/L (8-44); AST 22 U/L (13-35); Albumin 4.3 d/dL (3.8-4.9); Albumin/Globulin Ratio 1.79 Ratio (1.60-3.17); Alkaline Phosphatase 99 U/L (41-126); BUN/Creat Ratio 27.91 Ratio (12.00-20.00); Blood Urea Nitrogen 30.7 mg/dL (9.0-27.0); Calcium 9.8 mg/dL (8.7-10.3); Chloride 104 mmol/L (96-109); Chol/HDL Ratio 3.09 Ratio; Globulin 2.4 d/dL (1.6-3.3); Glucose 124 mg/dL (70-110); LDL Cholesterol,Calculated 89.9 mg/dL (0.0-131.0); Potassium 4.8 mmol/L (3.5-5.5); Sodium 142 mmol/L (135-145); Total Bilirubin 0.7 mg/dL (0.3-1.2); Total Protein 6.7 d/dL (6.2-8.2); Uric Acid 4.7 mg/dL (2.9-7.7)
[2023-02-03 18:34] LABS: Urine Creatinine 90.6 mg/dL (28.0-217.0)
== END | disposition home or self-care (01) ==
LOC: LABWHC1 08:06
PROVIDERS: ATTEND Internal Medicine Geriatric Medicine
DX: E11.65 Type 2 diabetes mellitus with hyperglycemia (principal); E11.22 Type 2 diabetes mellitus with diabetic chronic kidney disease; N18.31 Chronic kidney disease, stage 3a
CPT/HCPCS: 36415; 80053; 80061; 82043; 82570; 83036; 84443; 84550; 85025

== ENCOUNTER → 2023-05-18 | Outpatient (CLI) | payer MEDICARE ==
--- NOTE | 2023-05-19 09:26 | MM ---
Reason for Exam: Screening (asymptomatic). Last mammogram was performed 1 year(s) and 5 month(s) ago. Patient History: Menarche at age 14. First Full-Term at age 21. Left ovary removed at age 50. Hysterectomy at age 50. Postmenopausal. Other cancer. Estrogen for 15 years from age 50 until age 65. Hormonal Contraceptives for 6 months. Maternal grandmother had breast cancer, age 90. Prior Study Comparison: 08/09/2019 Bilateral Screening Mammogram, [facility]. 10/15/2020 Bilateral Screening Mammogram, [facility]. 12/17/2021 Bilateral Screening Mammogram, [facility]. Tissue Density: There are scattered fibroglandular densities. Findings: Analyzed By CAD. There is no suspicious group of microcalcifications or new suspicious mass in either breast. Overall Assessment: Negative, BI-RAD 1 Management: Screening Mammogram of both breasts in 1 year. . Patient should continue monthly self-breast exams. A clinical breast exam by your physician is recommended on an annual basis. This exam should not preclude additional follow-up of suspicious palpable abnormalities. Note on Tammy scores and lifetime risk: 1. A Tammy score greater than 3% is considered moderate risk. If this is the case, consider specialist referral to assess eligibility for a risk reducing agent. 2. If overall lifetime risk for the development of breast cancer is 20% or higher, the patient may qualify for future screening with alternating mammogram and breast MRI. Electronically signed and approved by: Janak Chi M.D. Radiologis
== END | disposition home or self-care (01) ==
LOC: RADMAMWWP 08:13
PROVIDERS: ATTEND Internal Medicine Geriatric Medicine
DX: Z12.31 Encounter for screening mammogram for malignant neoplasm of breast (principal); Z78.0 Asymptomatic menopausal state; Z80.3 Family history of malignant neoplasm of breast
CPT/HCPCS: 77063; 77067

== ENCOUNTER 2023-06-27 05:50 | Day surgery (SDC) | payer MEDICARE ==
[2023-06-27 06:53] LABS: Glucose,Whole Blood 102 mg/dL (70-110)
[2023-06-27] MEDS ORDERED: LACTATED RINGERS 1,000 ML IV ONE ×3 (07:08)
[2023-06-27] MEDS ORDERED: LIDOCAINE 1% INJ 10MG/ML (20 ML MDV) ONE (07:08)
[2023-06-27] MEDS ORDERED: PROPOFOL 10 MG/ML 20 ML VIAL IV ONE (07:08)
[2023-06-27 07:09] VITALS: RESP 16; TEMP 97.6
--- NOTE | 2023-06-27 07:43 | P.PCN ---
Date of Procedure: 06/27/23 Description of Procedure: Indication: Atrial fibrillation Procedure Description: After explaining the procedure to the patient, it's risk and complications, blood pressure, heart rate and O2 saturation were monitored. The throat was sprayed with Cetacaine. Patient received sedation per anesthesia department. The probe was introduced into the esophagus without difficulty. Images were obtained. Following that, the probe was removed. There was no immediate complication. Findings: Left atrial size is normal, left atrial appendage is normal. The mitral valve revealed mild thickening of the leaflets. Tricuspid valve appears to be normal. A TAVR bioprosthesis was noted. No pericardial effusion was noted. Contrast bubble study revealed no shunting across the intra-atrial septum. Left ventricle size and systolic function are normal. Descending thoracic aorta appears to be normal. Doppler: Pulse wave and color Doppler were obtained, an revealed mild aortic regurgitation with moderate to severe mitral and tricuspid regurgitation. The estimated right ventricle systolic pressure is 50-55 mmHg. There was no shunting across the intra-atrial septum. Conclusion: 1. Normal appearance of the left atrial appendage 2. Normal ventricle size and systolic function 3. Moderate to severe eccentric mitral regurgitation 4. Moderate to severe tricuspid regurgitation 5. Normal appearance of a TAVR bioprosthesis with mild aortic regurgitation 6. No shunting across the interatrial septum Cardioversion: After explaining the procedure to the patient and obtaining a SALBADOR, after obtaining sedated state a synchronized biphasic cardioversion using 150 J was performed with yazdanism of sinus mechanism, there was no immediate complications.
[2023-06-27] MEDS ORDERED: SODIUM CHLORIDE 0.9% 1,000 ML IV SCH (07:45)
[2023-06-27] MEDS ORDERED: DAPAGLIFLOZIN PROPANEDIOL 10 MG TABLET PO SCH (09:00)
[2023-06-27] MEDS ORDERED: ESCITALOPRAM 20 MG TAB PO SCH (09:00)
[2023-06-27] MEDS ORDERED: LEVOTHYROXINE 125 MCG TAB PO SCH (09:00)
[2023-06-27 09:18] VITALS: BP 109/71; PULSE 78
[2023-06-27] MEDS ORDERED: NON FORMULARY DRUG (Rosuvastatin 20 MG Tablet) PO SCH (21:00)
[2023-06-27] MEDS ORDERED: RIVAROXABAN 20 MG TAB PO SCH (21:00)
[2023-07-01] MEDS ORDERED: NON FORMULARY DRUG (Dulaglutide [Trulicity] 1.5 MG/0.5 ML Each) SQ SCH (07:38)
== END 2023-06-27 09:29 | disposition home or self-care (01) ==
LOC: OR 05:50
PROVIDERS: ATTEND Internal Medicine Interventional Cardiology
DX: I08.3 Combined rheumatic disorders of mitral, aortic and tricuspid valves (principal); I48.91 Unspecified atrial fibrillation; E78.5 Hyperlipidemia, unspecified; I49.9 Cardiac arrhythmia, unspecified; E11.9 Type 2 diabetes mellitus without complications; E07.9 Disorder of thyroid, unspecified; J45.909 Unspecified asthma, uncomplicated; K21.9 Gastro-esophageal reflux disease without esophagitis; F41.9 Anxiety disorder, unspecified; F32.A Depression, unspecified; Z88.1 Allergy status to other antibiotic agents; Z88.0 Allergy status to penicillin; Z86.73 Personal history of transient ischemic attack (TIA), and cerebral infarction without residual deficits; Z79.02 Long term (current) use of antithrombotics/antiplatelets; Z79.899 Other long term (current) drug therapy
CPT/HCPCS: 93312; 93320; 93325; 92960; J2001; J2704

== ENCOUNTER → 2023-08-31 | Outpatient (CLI) | payer MEDICARE ==
[2023-08-31 13:27] VITALS: BP 128/72; PULSE 72; RESP 15; TEMP 98.4
--- NOTE | 2023-08-31 14:31 | P.PAINPG ---
PQRS Measure Charge Sheet Comment: HISTORY OF PRESENT ILLNESS: A 88 yr old female as a referral from Dr Soto presents today w severe and chronic LBP x 1 yr secondary to DDD, spondylosis and facet arthropathy without myelopathy for evaluation. Pt states pain level is provoked at 7 /10 in intensity, constant, localized in the R lower lumbar spine, predominantly axial, achy in character without shooting pain. Pain is provoked by laying supine. Pain is alleviated by exercise regimen at the [facility] 4 times weekly x 2 yrs, medications (Tyl), topical, PT years ago, manual massage, use of a cane for ambulatory assistance, repositioning and rest. Oswestry axial pain score at 34. PMH: OA, Asthma, NIDDM II, DVT, GERD Hyperlipidemia, MVP, Hypothyroid Disorder, L Amaurosis Fugax, MDD/ Anxiety PSH: L2-L3 Fixation, Cardioversion (2022), Lap Band Surgery & Removal (2016), TAVR, Cholecystectomy, Hysterectomy, BL Knee Replacement, Tonsillectomy SH: Former tobacco user, Rare ETOH use, No illicit drug use FH: Bro- Lung CA All: See list Meds: See list REVIEW OF ORGAN SYSTEMS: CONSTITUTIONAL: No fevers or chills. No recent weight loss. NEUROLOGICAL: + numbness and tingling along the distal extremities. No seizure disorders or headaches. MUSCULOSKELETAL: + pain PSYCHIATRIC: Denies current depression or suicidal thoughts. Physical Examinations : Constitutional : Cooperative , not in acute distress . Neurologic : Cranial nerve II to XII intact. No focal neurological deficits. Psychiatric : alert & oriented x 3. Matching mood & appropriate affect. Judgment & insight intact. Musculoskeletal : Cervical Spine Motor strength in the deltoid and biceps: Normal right side. Normal Left side Motor strength biceps and the wrist extensors: Normal right side . Normal left side Motor strength in the triceps muscle: Normal right side. Normal left side Deep tendon reflexes: Normal at the biceps. Normal at Brachioradialis. Normal at triceps Vertebral body tenderness to deep palpation over Cervical facet loading test: positive bilaterally Spurling test: positive bilaterally Neck distraction test: positive bilaterally Amira sign: positive bilaterally Lumbar spine Motor strength lower extremities ,thigh and legs 5/5 Right side , 5/5 Left side Deep tendon reflexes : Normal Knee Jerk. Normal Ankle Jerk Vertebral body tenderness over L4 Torres Test positive over L4-L5 R> L Lumbar facet Loading Test: positive Right / positive Left Range of motion of the lumbar spine Flexion 30 degrees, extension 10 degrees Straight Leg Raise test: Left/ Right positive at degrees Melisa test: positive right / positive left. Severe tenderness over the Sacroiliac joint on the Right / Left sides Gaenslen test: positive bilaterally Seated flexion test: positive bilaterally. Sacral spine : Severe tenderness over the Sacroiliac joint: right side / left side Range of motion: Flexion of the lumbar spine <60 degrees Range of motion: Extension of the lumbar spine <20 degrees Gaenslen's Test positive Melisa test: positive right side / left side Thigh Thrust Test Sacral Thrust Test Imaging: CT noncontrast of the lumbar spine from 08/16/22 reviewed Assessment/ Plan : Post laminectomy syndrome Recommendation of DEBI L4-L5 #1. May need a series of injections for optimal pain relief. Risks, benefits of procedure discussed and patient verbalized und erstanding. Admits to anti- coagulant use or medical history of diabetes. Protocol for discontinuation/ continuation of medications mateo procedure discussed. All questions answered. I have spent greater than 30 minutes on patient care today. Dr Hunt was available by phone for the evaluation of this patient. The time was used to review the medical records including relevant urine studies and Prescription history (MAPs), review of the available imaging, evaluation and examination of the patient, coordination of care with the medical staff and if applicable referring physicians, as well as creation of the medical record - Pain Location Right Lower Back Non-Pharmacological Interventions: Ice, Inactivity, Position/Reposition, Sitting Pharmacological Interventions: PRN Medication PQRS Narrative: Smoking Status Former smoker Home Medications: Ambulatory Orders Cholecalciferol (Vitamin D3) [Vitamin D3] 2,000 unit PO DAILY 01/27/17 Levothyroxine Sodium [Synthroid] 125 mcg PO DAILY 01/27/17 Multivit-Min/FA/Lycopen/Lutein [Centrum Silver Tablet] 1 tab PO HS 01/27/17 Tolterodine Tartrate [Detrol LA] 4 mg PO HS 01/27/17 Omeprazole [PriLOSEC] 20 mg PO AC-BRKFST 03/23/18 ALPRAZolam [Xanax] 0.5 mg PO HS 03/23/21 Ascorbic Acid [Vitamin C] 1,000 mg PO DAILY 03/23/21 Artificial Tears-Hypromellose [Artificial Tear Drops] 1 drops BOTH EYES QID PRN #0 bottle 03/24/21 Acetaminophen [Tylenol Extra Strength] 1,000 mg PO HS 06/21/23 Acetaminophen [Tylenol Extra Strength] 500 mg PO DAILY 06/21/23 Dapagliflozin Propanediol [Farxiga] 10 mg PO DAILY 06/21/23 Diphenoxylate HCl/Atropine [Lomotil 2.5-0.025 mg Tablet] 1 each PO BID PRN 06/21/23 Dulaglutide [Trulicity] 1.5 mg SQ SA 06/21/23 Escitalopram [Lexapro] 20 mg PO DAILY 06/21/23 Rivaroxaban [Xarelto] 20 mg PO HS 06/21/23 Rosuvastatin [Crestor] 20 mg PO HS 06/21/23 Unk Calcium 1,000 mg PO BID 06/21/23 Unk Flonase 1 spray EA NOSTRIL DAILY PRN 06/21/23 Unk Prevagen 1 tab PO DAILY 06/21/23 Unk Probiotic 1 tab PO BID 06/21/23 Controlled Substance Measures - Controlled Substance Measures Is patient prescribed a controlled substance at discharge?: No
== END ==
LOC: PNWHC3 12:27
PROVIDERS: ATTEND Specialist
DX: M96.1 Postlaminectomy syndrome, not elsewhere classified (principal); Z88.0 Allergy status to penicillin; Z88.1 Allergy status to other antibiotic agents; Z91.09 Other allergy status, other than to drugs and biological substances; Z87.891 Personal history of nicotine dependence
CPT/HCPCS: 99211

== ENCOUNTER 2023-09-26 08:52 | Day surgery (SDC) | payer MEDICARE ==
[~2023-09-26 08:52] MED LIST changes: -ALPRAZolam 0.25 MG TAB PO PRN; -ALPRAZolam 0.5 MG TAB PO PRN; -ASPIRIN 325 MG TAB PO STA; -ATORVASTATIN 80 MG TAB PO STA; +LACTATED RINGERS 1,000 ML IV SCH; -NITROGLYCERIN SL TABS 0.4 MG TAB SUBLINGUAL PRN; -SODIUM CHLORIDE 0.9% 1,000 ML in EMPTY BAG 1 BAG IV ONE
[2023-09-26 09:58] LABS: Glucose,Whole Blood 102 mg/dL (70-110)
[2023-09-26 10:04] VITALS: RESP 16; TEMP 98.3
[2023-09-26] MEDS ORDERED: methylPREDNISolone ACETATE 40 MG/ML 1 ML VIAL ONE (10:23)
[2023-09-26] MEDS ORDERED: IOPAMIDOL M200 10 ML VIAL ONE (10:23)
--- NOTE | 2023-09-26 10:33 | P.PCN ---
Date of Procedure: 09/26/23 Procedure(s) Performed: PREOPERATIVE DIAGNOSIS: 1- Lumbar Degenerative Disc Diseases 2-Lumbar spondylosis with Facet arthropathy without myelopathy. 3-lumbar postlaminectomy pain syndrome POSTOPERATIVE DIAGNOSIS: 1-lumbar degenerative disc disease. 2-lumbar spondylosis with facet arthropathy without myelopathy. 3-lumbar postlaminectomy pain syndrome PROCEDURE 1. Lumbar epidural steroid injection under fluoroscopic guidance at the L4-5 level. (Fluoroscopy imaging was available in radiology department) 2. Lumbar epidurogram. ANESTHESIA: Lidocaine 1% 3 and then only. EBL: Minimal PROCEDURE INDICATION: The patient with low back pain and radiculitis symptoms unresponsive to conservative treatment. Fluoroscopy was used to optimize visualization of the needle placement and to maximize safety. PROCEDURE DESCRIPTION / TECHNIQUE: The patient was seen and identified in the preoperative area. Risks, benefits, complications including but not limited to infections ,bleeding ,allergic reaction to the medications ,nerve damage and not complete pain releife , and alternatives were discussed with the patient. The patient agreed to proceed with the procedure and signed the consent, and vital signs were stable. Patient was taken to the OR and time out was completed. The patient was placed in the prone position on procedure table and a pillow was placed under the abdomen to reduce lumbar lordosis. The lumbosacral area was prepped and draped in the usual sterile fashion.ere closely monitored during the procedure. Vital signs was monitered during the entire procedure. Using anterior-posterior fluoroscopy, the L4-5 interlaminar space was identified and the skin over this site was marked and then infiltrated with 1% lidocaine subcutaneously. Subsequently, a 20-gauge Tuohy epidural needle was inserted and advanced toward the epidural space using the ``Loss of resistance technique and guided by AP and lateral fluoroscopy. The correct needle position in the epidural space was verified with the injection of 2 mL of the water soluble contrast dye Isovue 200 contrast and observing an excellent epidurogram with the epidural spread of the dye, after negative aspiration for blood and CSF and in the absence of paresthesias. Again after negative aspiration, a 6 ml mixture containing 40 mg of Depo-medrol ( Preservetive Free ), and 2 ml of preservative free Normal Saline, and 2 ml of preservative free lidocaine 1% solution was injected and a washout of epidurogram was seen. Needle was withdrawn intact, skin was cleansed, and bandages were applied. COMPLICATIONS: None DISPOSITION / PLANS: The patient was placed in a supine position and transferred to the recovery area in a stable condition for observation. There was no evidence of lower extremity motor or sensory deficit after the procedure. Patient was discharged from the recovery room after meeting discharge criteria. Home discharge instructions were given to the patient by the staff. The patient was reexamined prior to discharge. The patient will schedule a follow up in the clinic in 2-4 weeks. note= patient had lumbar laminectomy and fusion at L3-4
[2023-09-26 11:06] VITALS: BP 109/68; PULSE 64
--- NOTE | 2023-09-26 12:55 | FL ---
EXAMINATION TYPE: FL guided pain mgmt statistic Intraoperative/procedural fluoroscopic services were provided. Total fluoroscopy time is 2.2 seconds with a total of 1 submitted images to PACS. Please se e the operative/procedural note for further details. DAP: [id number] mGym2
== END 2023-09-26 11:07 | disposition home or self-care (01) ==
LOC: ORPAIN 08:52
PROVIDERS: ATTEND Specialist
DX: M51.16 Intervertebral disc disorders with radiculopathy, lumbar region (principal); M47.26 Other spondylosis with radiculopathy, lumbar region; E11.9 Type 2 diabetes mellitus without complications; M96.1 Postlaminectomy syndrome, not elsewhere classified; Z79.01 Long term (current) use of anticoagulants; Z88.0 Allergy status to penicillin; Z91.040 Latex allergy status; Z88.1 Allergy status to other antibiotic agents
CPT/HCPCS: 62323; J1030; Q9966

== ENCOUNTER → 2023-09-29 | Outpatient (CLI) | payer MEDICARE ==
--- NOTE | 2023-09-29 22:16 | CT ---
EXAMINATION TYPE: CT sinus wo con CT DLP: 397.3 mGycm, Automated exposure control for dose reduction was used. DATE OF EXAM: 09/29/2023 3:35 PM COMPARISON: None. CLINICAL INDICATION:Female, 88 years old with history of J32.0 CHRONIC MAXILLARY SINUSITIS; , CHRONIC MAXILLARY SINUSITIS. worse on RT side. TECHNIQUE: Multiple thin axial images were obtained through the paranasal sinuses without the use of IV contrast. Additional coronal and sagittal reformatted images were submitted for evaluation. Contrast used: none Oral contrast used: none FINDINGS: Frontal sinuses: Normally developed and aerated. Frontal Recess: Clear Maxillary Sinuses: Normally developed and aerated. Maxillary Infundibula(OM[facility]): Clear, No Donell cells identified. Ethmoid sinuses: Normally developed and aerated. Ethmoidal notch: Unprotected bilateral anterior ethm oidal arteries. Sphenoid sinuses: Normally developed and aerated. There is sellar sphenoid sinus pneumatization witho ut evidence of dehiscence. No dehiscence of carotid canal. No evidence of optic nerve dehiscence wit hin the sphenoid sinus. No evidence of Onodi cells. Sphenoethmoidal recesses: Clear. Nasal septum: Within normal limits.. Nasal Turbinates: Within normal limits. Mastoid air cells & middle ears: The air cells are clear. The middle ears are grossly unremarkable. Modified Soft tissues & Brain: Partially seen without gross abnormality. Globes are intact. Bilateral ly aphakia. Other: Cribriform plate demonstrates symmetric Keros classification type 3 cribriform plate. No evidence of bony dehiscence of skull base. Lamina papyracea is intact without evidence of remote orbital fracture or orbital prolapse into the e thmoid sinus. IMPRESSION: 1. No significant mucosal sinus disease. 2. The ostiomeatal units, frontonasal and sphenoethmoidal recesses are clear.
== END | disposition home or self-care (01) ==
LOC: RADCTMAIN 15:08
PROVIDERS: ATTEND Otolaryngology
DX: J32.0 Chronic maxillary sinusitis (principal)
CPT/HCPCS: 70486

== ENCOUNTER → 2023-11-06 | Outpatient (CLI) | payer MEDICARE ==
[2023-11-06 18:51] LABS: Basophils # (A) 0.06 X 10*3/uL (0.00-0.10); Basophils % (A) 0.7 %; Eosinophils % (A) 1.2 %; HGB 12.7 g/dL (12.0-15.0); Lymphocytes # (A) 1.92 X 10*3/uL (0.90-5.00); Lymphocytes % (A) 22.8 %; MCHC 31.8 g/dL (32.0-37.0); MCV 91.3 FL (80.0-97.0); Mean Platelet Volume 9.4 FL (9.5-12.2); Monocytes # (A) 0.58 X 10*3/uL (0.20-1.00); Monocytes % (A) 6.9 %; NRBC Per 100 WBC 0 X 10*3/uL (0.00-0.01); Neutrophils # (A) 5.74 X 10*3/uL (1.80-7.70); Neutrophils % (A) 68.2 %; Platelet Count 261 X 10*3/uL (140-440); RBC 4.38 X 10*6/uL (4.10-5.20); RDW 14.6 % (11.5-14.5); WBC 8.42 X 10*3/uL (4.50-10.00)
[2023-11-06 21:52] LABS: ALT 23 U/L (8-44); AST 30 U/L (13-35); Albumin 4.4 g/dL (3.8-4.9); Albumin/Globulin Ratio 1.83 Ratio (1.60-3.17); Alkaline Phosphatase 86 U/L (41-126); BUN/Creat Ratio 21.27 Ratio (12.00-20.00); Blood Urea Nitrogen 23.4 mg/dL (9.0-27.0); Calcium 9.7 mg/dL (8.7-10.3); Carbon Dioxide 23.7 mmol/L (21.6-31.8); Chloride 104 mmol/L (96-109); Globulin 2.4 g/dL (1.6-3.3); Glucose 128 mg/dL (70-110); Potassium 4.4 mmol/L (3.5-5.5); Sodium 140 mmol/L (135-145); Total Bilirubin 0.7 mg/dL (0.3-1.2); Total Protein 6.8 g/dL (6.2-8.2)
[2023-11-07 13:41] LABS: Cryptosporidium Antigen Negative (Negative)
== END | disposition home or self-care (01) ==
LOC: LABWHC1 14:10
PROVIDERS: ATTEND Internal Medicine Gastroenterology
DX: R19.4 Change in bowel habit (principal); R19.7 Diarrhea, unspecified
CPT/HCPCS: 36415; 80053; 83630; 85025; 87045; 87046; 87324; 87328; 87329

== ENCOUNTER 2023-12-11 09:23 | Emergency (ER) | payer MEDICARE ==
[2023-12-11 10:03] VITALS: RESP 18; TEMP 97.7
--- NOTE | 2023-12-11 10:25 | XR ---
EXAMINATION TYPE: XR foot complete RT DATE OF EXAM: 12/11/2023 COMPARISON: NONE HISTORY: Pain TECHNIQUE: Three views are submitted. FINDINGS: Diffuse osteopenia. There is an oblique fracture of the fifth metatarsal. Mild arthropathy first MTP and second through fifth DIP joints. Large calcaneal spurs. Soft tissue ossifications are noted. IMPRESSION: 1. Mildly displaced acute fracture fifth metatarsal.
--- NOTE | 2023-12-11 10:55 | ED ---
Lower Extremity Injury HPI - General Chief Complaint: Extremity Injury, Lower Stated Complaint: R Foot Injury Time Seen by Provider: 12/11/23 09:41 Source: patient, RN notes reviewed Mode of arrival: wheelchair Limitations: no limitations - Related Data Home Medications Medication Instructions Recorded Confirmed Cholecalciferol (Vitamin D3) 1,000 unit PO DAILY 01/27/17 09/26/23 [Vitamin D3] Levothyroxine Sodium [Synthroid] 125 mcg PO DAILY 01/27/17 09/26/23 Multivit-Min/FA/Lycopen/Lutein 1 tab PO HS 01/27/17 09/26/23 [Centrum Silver Tablet] Tolterodine Tartrate [Detrol LA] 4 mg PO HS 01/27/17 09/26/23 Omeprazole [PriLOSEC] 20 mg PO AC-BRKFST 03/23/18 09/26/23 ALPRAZolam [Xanax] 0.5 mg PO HS 03/23/21 09/26/23 Ascorbic Acid [Vitamin C] 1,000 mg PO DAILY 03/23/21 09/26/23 Acetaminophen [Tylenol Extra 1,000 mg PO HS 06/21/23 09/26/23 Strength] Acetaminophen [Tylenol Extra 500 mg PO DAILY 06/21/23 09/26/23 Strength] Dapagliflozin Propanediol [Farxiga] 10 mg PO DAILY 06/21/23 09/26/23 Diphenoxylate HCl/Atropine 1 each PO BID PRN 06/21/23 09/26/23 [Lomotil 2.5-0.025 mg Tablet] Dulaglutide [Trulicity] 1.5 mg SQ SA 06/21/23 09/26/23 Escitalopram [Lexapro] 20 mg PO DAILY 06/21/23 09/26/23 Rivaroxaban [Xarelto] 20 mg PO HS 06/21/23 09/26/23 Rosuvastatin [Crestor] 20 mg PO HS 06/21/23 09/26/23 Unk Calcium 1,000 mg PO DAILY 06/21/23 09/26/23 Unk Flonase 1 spray EA NOSTRIL DAILY PRN 06/21/23 09/26/23 Unk Prevagen 1 tab PO DAILY 06/21/23 09/26/23 Unk Probiotic 1 tab PO BID 06/21/23 09/26/23 Previous Rx's Medication Instructions Recorded Artificial Tears-Hypromellose 1 drops BOTH EYES QID PRN #0 bottle 03/24/21 [Artificial Tear Drops] Allergies Allergy/AdvReac Type Severity Reaction Status Date / Time ciprofloxacin [From Cipro] Allergy made eyes Verified 12/11/23 09:43 red from the gtts Penicillins Allergy Unknown Verified 12/11/23 09:43 silicone Allergy Rash/Hives Verified 12/11/23 09:[address] rodriguez Verified 12/11/23 09:43 not want her anymore Review of Systems ROS Statement: Those systems with pertinent positive or pertinent negative responses have been documented in the HPI. ROS Other: All systems not noted in ROS Statement are negative. Past Medical History Past Medical History: Atrial Fibrillation, Asthma, Diabetes Mellitus, Deep Vein Thrombosis (DVT), GERD/Reflux, Hyperlipidemia, Mitral Valve Prolapse (MVP), Osteoarthritis (OA), Thyroid Disorder Additional Past Medical History / Comment(s): left eye stroke, severe DDD lower back. recent irregular heart beat per pt. see Dr Park H&P. 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 hx urinary leakage History of Any Multi-Drug Resistant Organisms: None Reported Past Surgical History: Bariatric Surgery, Cholecystectomy, Hysterectomy, Joint Replacement, Tonsillectomy Additional Past Surgical History / Comment(s): bilat knees, lap band, lap band removal 8-17, TAVR, catartacts wilfredo. colonscopy Past Anesthesia/Blood Transfusion Reactions: No Reported Reaction Past Psychological History: Anxiety, Depression Smoking Status: Former smoker Past Alcohol Use History: None Reported Past Drug Use History: None Reported - Past Family History Brother(s) Family Medical History: Cancer Additional Family Medical History / Comment(s): lung General Exam Limitations: no limitations Course Vital Signs 12/11/23 12/11/23 09:41 11:18 Temperature 97.7 F Pulse Rate 67 76 Respiratory 18 18 Rate Blood Pressure 103/68 116/75 O2 Sat by Pulse 98 97 Oximetry Medical Decision Making - Medical Decision Making Was pt. sent in by a medical professional or institution (, PA, RAILROAD SUPERVISOR [employer]ES, urgent care, hospital, or penitentiary...) When possible be specific @ -No Did you speak to anyone other than the patient for history (EMS, parent, family, police, friend...)? What history was obtained from this source @ -No Did you review nursing and triage notes (agree or disagree)? Why? @ -I reviewed and agree with nursing and triage notes Were old charts reviewed (outside hosp., previous admission, EMS record, old EKG, old radiological studies, urgent care reports/EKG's, penitentiary records)? Report findings @ -No old charts were reviewed Differential Diagnosis (chest pain, altered mental status, abdominal pain women, abdominal pain men, vaginal bleeding, weakness, fever, dyspnea, syncope, headache, dizziness, GI bleed, back pain, seizure, CVA, palpatations, mental health, musculoskeletal)? @ -Foot fracture, foot contusion EKG interpreted by me (3pts min.). @ -None X-rays interpreted by me (1pt min.). @ -X-ray right foot shows fifth metatarsal fracture CT interpreted by me (1pt min.). @ -None done U/S interpreted by me (1pt. min.). @ -None done What testing was considered but not performed or refused? (CT, X-rays, U/S, labs)? Why? @ -None What meds were considered but not given or refused? Why? @ -None Did you discuss the management of the patient with other professionals (professionals i.e. , PA, [employer]ILRO[employer] SUPER[employer], lab, RT, psych nurse, healthcare social worker, labor relations representative, teacher, credit review officer, telehealth case manager)? Give summary @ -No Was smoking cessation discussed for >3mins.? @ -No Was critical care preformed (if so, how long)? @ -No Were there social determinants of health that impacted care today? How? (Homelessness, low income, unemployed, alcoholism, drug addiction, transportation, low edu. Level, literacy, decrease access to med. care, senior care, rehab)? @ -No Was there de-escalation of care discussed even if they declined (Discuss DNR or withdrawal of care, Hospice)? DNR status @ -No What co-morbidities impacted this encounter? (DM, HTN, Smoking, COPD, CAD, Cancer, CVA, ARF, Chemo, Hep., AIDS, mental health diagnosis, sleep apnea, morbid obesity)? @ -None Was patient admitted / discharged? Hospital course, mention meds given and route, prescriptions, significant lab abnormalities, going to OR and other pertinent info. @ -[Discharge patient has a right foot fracture she will be given a prescription for walker as she is unable to use crutches secondary to age in instability patient was splinted and will follow-up with orthopedics Undiagnosed new problem with uncertain prognosis? @ -No Drug Therapy requiring intensive monitoring for toxicity (Heparin, Nitro, Insulin, Cardizem)? @ -No Were any procedures done? @ -[Splinting Diagnosis/symptom? @ -Right fifth met tarsal fracture Acute, or Chronic, or Acute on Chronic? @ -Acute Uncomplicated (without systemic symptoms) or Complicated (systemic symptoms)? @ -Uncomplicated Side effects of treatment? @ -No Exacerbation, Progression, or Severe Exacerbation? @ -No Poses a threat to life or bodily function? How? (Chest pain, USA, AR, pneumonia, PE, COPD, DKA, ARF, appy, cholecystitis, CVA, Diverticulitis, Homicidal, Suicidal, threat to staff... and all critical care pts) @ -No Disposition Clinical Impression: Nondisplaced fracture of fifth right metatarsal bone Disposition: HOME SELF-CARE Condition: Stable Instructions (If sedation given, give patient instructions): Foot Fracture in Adults (ED) Additional Instructions: Please return to the Emergency Department if symptoms worsen or any other concerns. Is patient prescribed a controlled substance at d/c from ED?: No Referrals: Donnie Soto MD [Primary Care Provider] - 1-2 days Дмитрий Pardo MD [Medical Doctor] - 1-2 days Time of Disposition: 10:54
[2023-12-11 11:35] VITALS: BP 116/75; PULSE 76
== END 2023-12-11 11:18 | disposition home or self-care (01) ==
LOC: EC 09:23
DX: S92.354A Nondisplaced fracture of fifth metatarsal bone, right foot, initial encounter for closed fracture (principal); Z88.0 Allergy status to penicillin; Z88.8 Allergy status to other drugs, medicaments and biological substances; Z88.1 Allergy status to other antibiotic agents; Z87.891 Personal history of nicotine dependence; X50.1XXA Overexertion from prolonged static or awkward postures, initial encounter
CPT/HCPCS: 29515; 99283

== ENCOUNTER → 2024-03-01 | Outpatient (CLI) | payer MEDICARE ==
[2024-03-01 15:25] LABS: Basophils # (A) 0.06 X 10*3/uL (0.00-0.10); Eosinophils # (A) 0.18 X 10*3/uL (0.04-0.35); Eosinophils % (A) 3.1 %; HCT 40.7 % (37.2-46.3); Lymphocytes # (A) 1.49 X 10*3/uL (0.90-5.00); MCH 30.3 pg (27.0-32.0); MCHC 31.9 g/dL (32.0-37.0); MCV 94.9 FL (80.0-97.0); Monocytes # (A) 0.45 X 10*3/uL (0.20-1.00); Monocytes % (A) 7.8 %; NRBC Per 100 WBC 0 X 10*3/uL (0.00-0.01); Neutrophils # (A) 3.55 X 10*3/uL (1.80-7.70); Neutrophils % (A) 61.9 %; Platelet Count 203 X 10*3/uL (140-440); RBC 4.29 X 10*6/uL (4.10-5.20); RDW 14.9 % (11.5-14.5); WBC 5.74 X 10*3/uL (4.50-10.00)
[2024-03-01 15:33] LABS: ALT 21 U/L (8-44); AST 25 U/L (13-35); Albumin 4.5 g/dL (3.8-4.9); Albumin/Globulin Ratio 2.05 Ratio (1.60-3.17); Alkaline Phosphatase 89 U/L (41-126); BUN/Creat Ratio 20.64 Ratio (12.00-20.00); Blood Urea Nitrogen 22.7 mg/dL (9.0-27.0); Calcium 9.6 mg/dL (8.7-10.3); Chloride 104 mmol/L (96-109); Chol/HDL Ratio 3.17 Ratio; Globulin 2.2 g/dL (1.6-3.3); Glucose 108 mg/dL (70-110); Potassium 4.7 mmol/L (3.5-5.5); Sodium 142 mmol/L (135-145); Total Bilirubin 0.6 mg/dL (0.3-1.2); Total Protein 6.7 g/dL (6.2-8.2); Uric Acid 4.7 mg/dL (2.9-7.7)
== END | disposition home or self-care (01) ==
LOC: LABWHC1 08:44
PROVIDERS: ATTEND Internal Medicine Geriatric Medicine
DX: I12.9 Hypertensive chronic kidney disease with stage 1 through stage 4 chronic kidney disease, or unspecified chronic kidney disease (principal); I48.0 Paroxysmal atrial fibrillation; E11.65 Type 2 diabetes mellitus with hyperglycemia; E11.22 Type 2 diabetes mellitus with diabetic chronic kidney disease; E78.2 Mixed hyperlipidemia; N18.9 Chronic kidney disease, unspecified
CPT/HCPCS: 36415; 80053; 80061; 83036; 84443; 84550; 85025

== ENCOUNTER → 2024-05-16 | Outpatient (CLI) | payer MEDICARE ==
[2024-05-16 14:34] VITALS: BP 96/62; PULSE 70; RESP 16
--- NOTE | 2024-05-16 15:07 | P.PAINPG ---
PQRS Measure Charge Sheet Comment: HISTORY OF PRESENT ILLNESS: A 89 yr old female presents today w severe and chronic LBP x 1 yr secondary to radiculopathy, spondylosis and facet arthropathy without myelopathy for evaluation s/p DEBI L4-L5 #1. Pt states she experienced 75 % pain relief x 6 mo s/p procedure. Pt states pain level is provoked at 9 /10 in intensity, constant, localized in the lower lumbar spine, predominantly axial, achy in character without shooting pain. Pain is provoked by laying supine. Pain is alleviated by exercise regimen at the [facility] 4 times weekly x 2 yrs, medications, topical, PT years ago, manual massage, use of a cane for ambulatory assistance, repositioning and rest. Interventional procedures include DEBI L4-L5 x1 (Sep 2023) Medications include Tyl REVIEW OF ORGAN SYSTEMS: CONSTITUTIONAL: No fevers or chills. No recent weight loss. NEUROLOGICAL: + numbness and tingling along the distal extremities. No seizure disorders or headaches. MUSCULOSKELETAL: + pain PSYCHIATRIC: Denies current depression or suicidal though ts. Physical Examinations : Constitutional : Cooperative , not in acute distress . Neurologic : Cranial nerve II to XII intact. No focal neurological deficits. Psychiatric : alert & oriented x 3. Matching mood & appropriate affect. Judgment & insight intact. Musculoskeletal : Cervical Spine Motor strength in the deltoid and biceps: Normal right side. Normal Left side Motor strength biceps and the wrist extensors: Normal right side . Normal left side Motor strength in the triceps muscle: Normal right side. Normal left side Deep tendon reflexes: Normal at the biceps. Normal at Brachioradialis. Normal at triceps Vertebral body tenderness to deep palpation over Cervical facet loading test: positive bilaterally Spurling test: positive bilaterally Neck distraction test: positive bilaterally Amira sign: positive bilaterally Lumbar spine Motor strength lower extremities ,thigh and legs 5/5 Right side , 5/5 Left side Deep tendon reflexes : Normal Knee Jerk. Normal Ankle Jerk Vertebral body tenderness over L4 Torres Test positive over BL L4-5 Lumbar facet Loading Test: positive Right / positive Left Range of motion of the lumbar spine Flexion 30 degrees, extension 10 degrees Straight Leg Raise test: Left/ Right positive at degrees Melisa test: positive right / positive left. Severe tenderness over the Sacroiliac joint on the Right / Left sides Gaenslen test: positive bilaterally Seated flexion test: positive bilaterally. Sacral spine : Severe tenderness over the Sacroiliac joint: right side / left side Range of motion: Flexion of the lumbar spine <60 degrees Range of motion: Extension of the lumbar spine <20 degrees Gaenslen's Test positive Melisa test: positive right side / left side Thigh Thrust Test Sacral Thrust Test Imaging: CT noncontrast of the lumbar spine from 08/16/22 reviewed Assessment/ Plan : Post laminectomy syndrome Recommendation of DEBI L4-5 #2. May benefit from DEBI L3-L4 in the near future. Risks, benefits of procedure discussed and patient verbalized understanding. Admits to anti- coagulant use or medical history of diabetes. Protocol for discontinuation/ continuation of medications mateo procedure discussed. All questions answered. I have spent greater than 30 minutes on patient care today. Dr Hunt was available by phone for the evaluation of this patient. The time was used to review the medical records including relevant urine studies and Prescription history (MAPs), review of the available imaging, evaluation and examination of the patient, coordination of care with the medical staff and if applicable referring physicians, as well as creation of the medical record PQRS Narrative: Smoking Status Former smoker Hx Alcohol Use (MH) No Home Medications: Ambulatory Orders Cholecalciferol (Vitamin D3) [Vitamin D3] 1,000 unit PO DAILY 01/27/17 Levothyroxine Sodium [Synthroid] 125 mcg PO DAILY 01/27/17 Multivit-Min/FA/Lycopen/Lutein [Centrum Silver Tablet] 1 tab PO HS 01/27/17 Tolterodine Tartrate [Detrol LA] 4 mg PO HS 01/27/17 Omeprazole [PriLOSEC] 20 mg PO AC-BRKFST 03/23/18 ALPRAZolam [Xanax] 0.5 mg PO HS 03/23/21 Ascorbic Acid [Vitamin C] 1,000 mg PO DAILY 03/23/21 Artificial Tears-Hypromellose [Artificial Tear Drops] 1 drops BOTH EYES QID PRN #0 bottle 03/24/21 Acetaminophen [Tylenol Extra Strength] 1,000 mg PO HS 06/21/23 Acetaminophen [Tylenol Extra Strength] 500 mg PO DAILY 06/21/23 Dapagliflozin Propanediol [Farxiga] 10 mg PO DAILY 06/21/23 Diphenoxylate HCl/Atropine [Lomotil 2.5-0.025 mg Tablet] 1 each PO BID PRN 06/21/23 Dulaglutide [Trulicity] 1.5 mg SQ SA 06/21/23 Escitalopram [Lexapro] 20 mg PO DAILY 06/21/23 Rivaroxaban [Xarelto] 20 mg PO HS 06/21/23 Rosuvastatin [Crestor] 20 mg PO HS 06/21/23 Unk Calcium 1,000 mg PO DAILY 06/21/23 Unk Flonase 1 spray EA NOSTRIL DAILY PRN 06/21/23 Unk Prevagen 1 tab PO DAILY 06/21/23 Unk Probiotic 1 tab PO BID 06/21/23 Controlled Substance Measures - Controlled Substance Measures Is patient prescribed a controlled substance at discharge?: No
== END ==
LOC: PNWHC3 14:00
PROVIDERS: ATTEND Specialist
DX: M96.1 Postlaminectomy syndrome, not elsewhere classified (principal); Z87.891 Personal history of nicotine dependence; Z88.1 Allergy status to other antibiotic agents; Z88.0 Allergy status to penicillin; Z88.8 Allergy status to other drugs, medicaments and biological substances
CPT/HCPCS: 99211

== ENCOUNTER → 2024-05-28 | Outpatient (CLI) | payer MEDICARE ==
--- NOTE | 2024-05-28 11:57 | MM ---
Reason for Exam: Screening (asymptomatic). Last screening mammogram was performed 12 month(s) ago. Patient History: Menarche at age 14. First Full-Term at age 21. Left ovary removed at age 50. Hysterectomy at age 50. Postmenopausal. Other cancer. Estrogen for 15 years from age 50 until age 65. Hormonal Contraceptives for 6 months. Maternal grandmother had breast cancer, age 90. Prior Study Comparison: 10/15/2020 Bilateral Screening Mammogram, [facility]. 12/17/2021 Bilateral Screening Mammogram, [facility]. 05/18/2023 Bilateral MG 3D screening mammo w/cad, [facility]. Tissue Density: The breasts are almost entirely fatty. Findings: Analyzed By CAD. Right breast: There is no suspicious group of microcalcifications or new suspicious mass. Left breast: There is no suspicious group of microcalcifications or new suspicious mass. Overall Assessment: Negative, BI-RAD 1 Management: Screening Mammogram of both breasts in [address] [facility] will attempt to contact patient to return for supplemental views and ultrasound if indicated. Patient should continue monthly self-breast exams. A clinical breast exam by your physician is recommended on an annual basis. This exam should not preclude additional follow-up of suspicious palpable abnormalities. Note on Tammy scores and lifetime risk: 1. A Tammy score greater than 3% is considered moderate risk. If this is the case, consider specialist referral to assess eligibility for a risk reducing agent. 2. If overall lifetime risk for the development of breast cancer is 20% or higher, the patient may qualify for future screening with alternating mammogram and breast MRI. [facility], , 05/28/2024 11:48 AM. Electronically signed and approved by: Mo Spencer DO
== END | disposition home or self-care (01) ==
LOC: RADMAMWWP 09:01
PROVIDERS: ATTEND Internal Medicine Geriatric Medicine
CPT/HCPCS: 77063; 77067

== ENCOUNTER 2024-06-07 08:51 | Day surgery (SDC) | payer MEDICARE ==
[2024-06-07 09:29] VITALS: RESP 16; TEMP 97.1
[2024-06-07] MEDS ORDERED: IOPAMIDOL M200 10 ML VIAL ONE (09:50)
[2024-06-07] MEDS ORDERED: methylPREDNISolone ACETATE 40 MG/ML 1 ML VIAL ONE (09:50)
[2024-06-07 09:51] LABS: Glucose,Whole Blood 85 mg/dL (70-110)
--- NOTE | 2024-06-07 10:08 | P.PCN ---
Date of Procedure: 06/07/24 Procedure(s) Performed: PREOPERATIVE DIAGNOSIS: 1- Lumbar laminectomy pain syndrome 2-Lumbar spondylosis with Facet arthropathy without myelopathy. 3-lumbar radiculopathy POSTOPERATIVE DIAGNOSIS: Same as preop diagnosis PROCEDURE 1. Lumbar epidural steroid injection under fluoroscopic guidance at the L3-4 level. (Fluoroscopy imaging was available in radiology department) 2. Lumbar epidurogram. ANESTHESIA: Lidocaine 1% 3 and then only. EBL: Minimal PROCEDURE INDICATION: The patient with low back pain and radiculitis symptoms unresponsive to conservative treatment. Fluoroscopy was used to optimize visualization of the needle placement and to maximize safety. PROCEDURE DESCRIPTION / TECHNIQUE: The patient was seen and identified in the preoperative area. Risks, benefits, complications including but not limited to infections ,bleeding ,allergic reaction to the medications ,nerve damage and not complete pain releife , and alternatives were discussed with the patient. The patient agreed to proceed with the procedure and signed the consent, and vital signs were stable. Patient was taken to the OR and time out was completed. The patient was placed in the prone position on procedure table and a pillow was placed under the abdomen to reduce lumbar lordosis. The lumbosacral area was prepped and draped in the usual sterile fashion.ere closely monitored during the procedure. Vital signs was monitered during the entire procedure. Using anterior-posterior fluoroscopy, the L3-4 interlaminar space was identified and the skin over this site was marked and then infiltrated with 1% lidocaine subcutaneously. Subsequently, a 20-gauge Tuohy epidural needle was inserted ( right paramedial ),and advanced toward the epidural space using the ``Loss of resistance technique and guided by AP and lateral fluoroscopy. The correct needle position in the epidural space was verified with the injection of 2 mL of the water soluble contrast dye Isovue 200 contrast and observing an excellent epidurogram with the epidural spread of the dye, after negative aspiration for blood and CSF and in the absence of paresthesias. Again after negative aspiration, a 5 ml mixture containing 40 mg of Depo-medrol ( Preservetive Free ), and 2 ml of preservative free Normal Saline, and 2 ml of preservative free lidocaine 1% solution was injected and a washout of epidurogram was seen. Needle was withdrawn intact, skin was cleansed, and bandages were applied. COMPLICATIONS: None DISPOSITION / PLANS: The patient was placed in a supine position and transferred to the recovery area in a stable condition for observation. There was no evidence of lower extremity motor or sensory deficit after the procedure. Patient was discharged from the recovery room after meeting discharge criteria. Home discharge instructions were given to the patient by the staff. The patient was reexamined prior to discharge. The patient will schedule a follow up in the clinic in 2-4 weeks.
--- NOTE | 2024-06-07 10:19 | FL ---
EXAMINATION TYPE: FL guided pain mgmt statistic DATE OF EXAM: 06/07/2024 FLUOROSCOPY lesi steroid injection fl time 5.6 secs dap [id number] One image submitted. [facility], , 06/07/2024 10:16 AM
[2024-06-07 10:28] VITALS: BP 128/61; PULSE 73
== END 2024-06-07 10:28 | disposition home or self-care (01) ==
LOC: ORPAIN 08:51
PROVIDERS: ATTEND Specialist
DX: M47.26 Other spondylosis with radiculopathy, lumbar region (principal); Z79.01 Long term (current) use of anticoagulants; Z88.0 Allergy status to penicillin; Z88.8 Allergy status to other drugs, medicaments and biological substances; Z88.1 Allergy status to other antibiotic agents
CPT/HCPCS: 62323; Q9966; J1010

== ENCOUNTER → 2024-06-26 | Outpatient (CLI) | payer MEDICARE ==
[2024-06-26 14:36] VITALS: BP 94/61; PULSE 69; RESP 16
--- NOTE | 2024-06-26 16:07 | P.PAINPG ---
Objective - Vital Signs Vital signs: Intake & Output 06/25/24 06/26/24 06/26/24 18:59 06:59 18:59 Weight 78.925 kg PQRS Measure Charge Sheet Comment: HISTORY OF PRESENT ILLNESS: A 89 yr old female presents today w severe and chronic LBP x 1 yr secondary to radiculopathy, spondylosis and facet arthropathy without myelopathy for evaluation s/p DEBI L3-L4 #2. Pt states she experienced 50 % pain relief x 2-3wks s/p procedure. Pt states pain level is provoked at 4 /10 in intensity, constant, localized in the lower lumbar spine, predominantly axial, achy in character without shooting pain. Pain is provoked by laying supine. Pain is alleviated by exercise regimen at the [facility] 4 times weekly x 2 yrs, medications, topical, PT years ago, manual massage, use of a cane for ambulatory assistance, repositioning and rest. Interventional procedures include DEBI L4-L5 x1 (Sep 2023), DEBI L3-L4 x1 (May 2024) Medications include Tyl REVIEW OF ORGAN SYSTEMS: CONSTITUTIONAL: No fevers or chills. No recent weight loss. NEUROLOGICAL: + numbness and tingling along the distal extremities. No seizure disorders or headaches. MUSCULOSKELETAL: + pain PSYCHIATRIC: Denies current depression or suicidal thoughts. Physical Examinations : Constitutional : Cooperative , not in acute distress . Neurologic : Cranial nerve II to XII intact. No focal neurological deficits. Psychiatric : alert & oriented x 3. Matching mood & appropriate affect. Judgment & insight intact. Musculoskeletal : Cervical Spine Motor strength in the deltoid and biceps: Normal right side. Normal Left side Motor strength biceps and the wrist extensors: Normal right side . Normal left side Motor strength in the triceps muscle: Normal right side. Normal left side Deep tendon reflexes: Normal at the biceps. Normal at Brachioradialis. Normal at triceps Vertebral body tenderness to deep palpation over Cervical facet loading test: positive bilaterally Spurling test: positive bilaterally Neck distraction test: positive bilaterally Amira sign: positive bilaterally Lumbar spine Motor strength lower extremities ,thigh and legs 5/5 Right side , 5/5 Left side Deep tendon reflexes : Normal Knee Jerk. Normal Ankle Jerk Vertebral body tenderness over L4 Torres Test positive over BL L4-5 Lumbar facet Loading Test: positive Right / positive Left Range of motion of the lumbar spine Flexion 30 degrees, extension 10 degrees Straight Leg Raise test: Left/ Right positive at degrees Melisa test: positive right / positive left. Severe tenderness over the Sacroiliac joint on the Right / Left sides Gaenslen test: positive bilaterally Seated flexion test: positive bilaterally. Sacral spine : Severe tenderness over the Sacroiliac joint: right side / left side Range of motion: Flexion of the lumbar spine <60 degrees Range of motion: Extension of the lumbar spine <20 degrees Gaenslen's Test positive Melisa test: positive right side / left side Thigh Thrust Test Sacral Thrust Test Imaging: CT noncontrast of the lumbar spine from 08/16/22 reviewed Assessment/ Plan : Post laminectomy syndrome Recommendation of medication management. Diclofenac gel 50gm 1 tube w 1 RF. Use, side effects, adverse reactions, safe storage discussed. All questions answered. I have spent greater than 30 minutes on patient care today. Dr Hunt was available by phone for the evaluation of this patient. The time was used to review the medical records including relevant urine studies and Prescription history (MAPs), review of the available imaging, evaluation and examination of the patient, coordination of care with the medical staff and if applicable referring physicians, as well as creation of the medical record PQRS Narrative: Smoking Status Former smoker Narcotic Agreement Date Signed 05/16/24 Hx Alcohol Use (MH) No Home Medications: Ambulatory Orders Cholecalciferol (Vitamin D3) [Vitamin D3] 1 tab PO DAILY 01/27/17 Levothyroxine Sodium [Synthroid] 125 mcg PO DAILY 01/27/17 Multivit-Min/FA/Lycopen/Lutein [Centrum Silver Tablet] 1 tab PO HS 01/27/17 Tolterodine Tartrate [Detrol LA] 4 mg PO HS 01/27/17 ALPRAZolam [Xanax] 0.5 mg PO HS 03/23/21 Ascorbic Acid [Vitamin C] 1,000 mg PO DAILY 03/23/21 Artificial Tears-Hypromellose [Artificial Tear Drops] 1 drops BOTH EYES QID PRN #0 bottle 03/24/21 Acetaminophen [Tylenol Extra Strength] 1,000 mg PO HS 06/21/23 Acetaminophen [Tylenol Extra Strength] 500 mg PO QAM 06/21/23 Dapagliflozin Propanediol [Farxiga] 10 mg PO DAILY 06/21/23 Diphenoxylate HCl/Atropine [Lomotil 2.5-0.025 mg Tablet] 1 each PO BID PRN 06/21/23 Dulaglutide [Trulicity] 1.5 mg SQ SA 06/21/23 Escitalopram [Lexapro] 20 mg PO DAILY 06/21/23 Rivaroxaban [Xarelto] 20 mg PO AC-SUPPER 06/21/23 Rosuvastatin [Crestor] 20 mg PO HS 06/21/23 Unk Calcium 1,000 mg PO DAILY 06/21/23 Unk Flonase 1 spray EA NOSTRIL DAILY PRN 06/21/23 Unk Prevagen 1 tab PO DAILY 06/21/23 Unk Probiotic 1 tab PO BID 06/21/23 Pantoprazole [Protonix] 40 mg PO DAILY 06/05/24 polyethylene glycoL 3350 [Miralax] 1 dose PO DAILY 06/05/24 Diclofenac Sodium [Voltaren Arthritis Pain 1% Gel] 2 gm TOPICAL TID PRN 30 Days #1 each 06/26/24 Controlled Substance Measures - Controlled Substance Measures Is patient prescribed a controlled substance at discharge?: No
== END ==
LOC: PNWHC3 13:53
PROVIDERS: ATTEND Specialist
DX: M96.1 Postlaminectomy syndrome, not elsewhere classified (principal); M47.816 Spondylosis without myelopathy or radiculopathy, lumbar region; Z87.891 Personal history of nicotine dependence; Z88.1 Allergy status to other antibiotic agents; Z88.8 Allergy status to other drugs, medicaments and biological substances; Z88.0 Allergy status to penicillin
CPT/HCPCS: 99211

== ENCOUNTER → 2024-10-14 | Outpatient (CLI) | payer MEDICARE ==
[2024-10-14 16:43] LABS: ALT 26 U/L (8-44); AST 29 U/L (13-35); Albumin 4.3 g/dL (3.8-4.9); Albumin/Globulin Ratio 2.05 Ratio (1.60-3.17); Alkaline Phosphatase 90 U/L (41-126); BUN/Creat Ratio 40.08 Ratio (12.00-20.00); Blood Urea Nitrogen 48.1 mg/dL (9.0-27.0); Calcium 9.5 mg/dL (8.7-10.3); Carbon Dioxide 24.4 mmol/L (21.6-31.8); Chloride 104 mmol/L (96-109); Chol/HDL Ratio 2.65 Ratio; Globulin 2.1 g/dL (1.6-3.3); Glucose 84 mg/dL (70-110); LDL Cholesterol,Calculated 87.1 mg/dL (0.0-131.0); Potassium 5.2 mmol/L (3.5-5.5); Sodium 138 mmol/L (135-145); Total Bilirubin 0.6 mg/dL (0.3-1.2); Total Protein 6.4 g/dL (6.2-8.2); VLDL Calculation 15.12 mg/dL (5.00-40.00)
[2024-10-14 16:58] LABS: HCT 39.3 % (37.2-46.3); HGB 12.3 g/dL (12.0-15.0); MCH 29.9 pg (27.0-32.0); MCHC 31.3 g/dL (32.0-37.0); MCV 95.6 FL (80.0-97.0); Mean Platelet Volume 10.4 FL (9.5-12.2); NRBC Per 100 WBC 0 X 10*3/uL (0.00-0.01); Platelet Count 201 X 10*3/uL (140-440); RBC 4.11 X 10*6/uL (4.10-5.20); RDW 13.1 % (11.5-14.5); WBC 6.31 X 10*3/uL (4.50-10.00)
== END | disposition home or self-care (01) ==
LOC: LABWHC1 09:15
PROVIDERS: ATTEND Internal Medicine Interventional Cardiology
DX: E78.2 Mixed hyperlipidemia (principal); Z95.2 Presence of prosthetic heart valve
CPT/HCPCS: 36415; 80053; 80061; 85027

== ENCOUNTER → 2024-12-11 | Outpatient (CLI) | payer MEDICARE ==
[2024-12-11 10:36] LABS: ALT 22 U/L (8-44); AST 25 U/L (13-35); Albumin 4.2 g/dL (3.8-4.9); Albumin/Globulin Ratio 1.75 Ratio (1.60-3.17); Alkaline Phosphatase 84 U/L (41-126); BUN/Creat Ratio 36.92 Ratio (12.00-20.00); Blood Urea Nitrogen 44.3 mg/dL (9.0-27.0); Calcium 9.8 mg/dL (8.7-10.3); Carbon Dioxide 25.2 mmol/L (21.6-31.8); Chloride 104 mmol/L (96-109); Globulin 2.4 g/dL (1.6-3.3); Glucose 93 mg/dL (70-110); Potassium 4.4 mmol/L (3.5-5.5); Sodium 139 mmol/L (135-145); T4, Free (Free Thyroxine) 1.44 ng/dL (0.80-1.80); Total Bilirubin 0.5 mg/dL (0.3-1.2); Total Protein 6.6 g/dL (6.2-8.2); Uric Acid 4.3 mg/dL (2.9-7.7)
== END | disposition home or self-care (01) ==
LOC: LABWHC1 07:42
PROVIDERS: ATTEND Internal Medicine Geriatric Medicine
DX: E11.22 Type 2 diabetes mellitus with diabetic chronic kidney disease (principal); N18.31 Chronic kidney disease, stage 3a; E03.9 Hypothyroidism, unspecified
CPT/HCPCS: 36415; 80053; 83036; 84439; 84443; 84550